=== PATIENT | female | born 1970 | race Hispanic/Latino ===

== ENCOUNTER → 2020-08-19 00:32 | Outpatient (CLI) | payer OTHER, SELFPAY ==
[2020-08-19 17:45] LABS: SARS-CoV-2 RNA PCR Positive
== END ==
PROVIDERS: PCP Nurse Practitioner Family; Visit Provider Internal Medicine Gastroenterology
DX: Z01.812 Encounter for preprocedural laboratory examination (principal); U07.1 COVID-19
CPT/HCPCS: C9803; U0003; U0005

== ENCOUNTER 2020-09-30 01:48 | Day surgery (SDC) | payer OTHER, SELFPAY ==
[2020-08-08 14:48] VITALS: BMI 32.1
--- NOTE | 2020-08-21 10:13 | SUR.PREOP ---
08/21/20 Attempted to contact patient several times yesterday 08/20/20 with no success. Messages left on patient's voicemail with no call returned. Call Dr. Lopes on 08/20/20 at 2pm to discuss patient's positive Covid test. Dr. Lopes ok'd the patient to be cancelled for her procedure on Saturday and instructed the patient to call the office to reschedule in 4 to 6 weeks. 08/21/20 1015 Called patient's emergency contact number after trying to call patient again with no answer spoke with sister Tamela. Message left with Tamela to have Altagracia call me back to discuss her appointment for tomorrow. 08/21/20 1022 patient called back and test result given. Discussed patient's symptoms which were a mild cough 2 weeks ago and fatigue currently. She said the cough is gone and just having fatigue but thought it was due to her schedule at home. Instructed patient to call doctors office if symptoms worsen and to call Dr Lopes's office to schedule her procedure in 4 to 6 weeks. Patient voiced understanding. Instructed patient that she would be receiving a call from the [facility] as we report all Covid positive results. Patient voiced understanding. Questions answered from patient about rescheduling her procedure.
[2020-09-22 14:37] VITALS: BMI 27.5
--- NOTE | ~2020-09-30 | XR_ITS ---
EXAMINATION: XR chest 1V INDICATION: Possible esophageal perforation during upper endoscopy TECHNIQUE: AP view the chest is obtained. COMPARISON: 03/23/2019 FINDINGS: Water-soluble contrast material is seen in the stomach. There is no evidence of contrast ma terial in the mediastinum. The lungs are clear. The cardiomediastinal silhouette is normal. Surgical clips in the right upper quadrant are likely from prior cholecystectomy. There are partially imaged c hanges of cervical fusion procedure. IMPRESSION: 1. No acute cardiopulmonary abnormality or evidence of water-soluble contrast in the mediastinum. Reviewed, dictated and finalized at location A. IMPRESSION: 1. No acute cardiopulmonary abnormality or evidence of water-soluble contrast i n the mediastinum.
--- NOTE | ~2020-09-30 | XR_ITS ---
EXAMINATION: XR esophogram water soluble DATE: 09/30/2020 13:13 INDICATION: Patient with odynophagia post upper endoscopy TECHNIQUE: The patient drank water-soluble contrast. Fluoroscopy of the hypopharynx and esophagus was performed. Fluoroscopy exposure time was 1.5 minutes. The DAP for this procedure was 26.54 Gycm2. COMPARISON: None. FINDINGS: Examination is limited by patient's ability to tolerate oral contrast material. No esophage al perforation is identified. There is no mass or stricture of the esophagus. There is mild delay in emptying of contrast from the distal esophagus into the stomach. Esophageal motility is normal. There is no hiatal hernia. There was no observed gastroesophageal reflux. IMPRESSION: 1. No esophageal perforation identified. 2. Mild delayed emptying of contrast into the stomach. Reviewed, dictated and finalized at location A.
[2020-09-30 10:22] VITALS: BP 142/91; RESP 19; TEMP 36.5; O2SAT 99; BMI 27.5
[2020-09-30] MEDS: LACTATED RINGERS 1,000 ML 150 ML IV CONT (10:39)
--- NOTE | 2020-09-30 11:02 | PM.HPGS ---
History of Present Illness History of Present Illness Consent: Risks, benefits, and alternatives have been discussed and questions answered. Patient agrees to proceed with procedure. Chief complaint: dysphagia Narrative: Altagracia Pham is a 50 year old female with severe dysphagia for solid food. She has a history of having had a hiatal hernia repair. Eventually it had to be taken down because of complications. Review of Systems Review of Systems: All systems reviewed & are unremarkable except as noted in HPI and below PMFSH Past Medical History Medical History (Updated 08/03/20 @ 13:39 by Davey Lopes MD) Hiatal hernia HTN (hypertension) Migraines Surgical History Surgical History H/O: hysterectomy History of endoscopy History of fusion of cervical spine Hx of appendectomy Hx of cholecystectomy Hx of knee surgery Family History Family History Mother Hypertension Family history of diabetes mellitus in first degree relative Sibling Patient's sister is in good health Patient's brother is in good health Father Hypertension Family history of diabetes mellitus in first degree relative Social History Social History Smoking status: Never smoker Second hand tobacco smoke exposure: No Alcohol intake: never Substance use: never Substance use type: does not use Living arrangements: with family Spiritual care concerns: No Meds Home Medications and Allergies Home Medications Medication Instructions Recorded Confirmed Type omeprazole 20 mg capsule,delayed 20 mg PO DAILY #20 cap 07/25/20 08/08/20 Rx release bupropion HCl 300 mg PO QAM 08/08/20 09/22/20 History ethinyl estradiol 0.5 mg PO DAILY 08/08/20 08/08/20 History famotidine 40 mg PO DAILY 08/08/20 08/08/20 History nortriptyline 50 mg PO HS 08/08/20 08/08/20 History progesterone micronized 300 mg PO HS 08/08/20 08/08/20 History ondansetron 4 mg disintegrating 4 mg PO Q6H PRN #14 tablet 09/20/20 09/22/20 Rx tablet Allergies Allergy/AdvReac Type Severity Reaction Status Date / Time metoclopramide AdvReac Unknown hullcinatio Verified 09/22/20 14:26 ns Vital Signs Vital Signs - 24 hr 09/30/20 10:22 Temperature 36.5 C Respiratory Rate 19 Blood Pressure 142/91 H Pulse Oximetry 99 Exam Resp: Auscultation: clear to auscultation bilaterally Cardio: Rate: regular rate Rhythm: regular rhythm GI: GI Palp: Yes Soft to palpation and No Tenderness to palpation present (GI) Assessment and Plan Assessment and plan (1) Dysphagia: Code(s): R13.10 - Dysphagia, unspecified Status: Acute Assessment and Plan: EGD with possible biopsy or dilatation or cautery.
--- NOTE | 2020-09-30 11:10 | WPDANESEPPF ---
Anes - Initial Pre Proc Eval Procedure: Operation Date: 08/22/20 10:30 Proposed Procedures p Esophagogastroduodenoscopy - Davey Lopes MD Operation Date: 09/30/20 11:30 Proposed Procedures p Esophagogastroduodenoscopy - Davey Lopes MD Date/Time: 09/30/20 11:10 Surgeon: Davey Lopes MD Pre Op Diagnosis: dysphagia Patient Data Age: 50 Gender: F Height: 5 ft 1 in Weight: 66 kg Last Vital Signs Temp 36.5 C 09/30/20 10:22 Resp 19 09/30/20 10:22 BP 142/91 H 09/30/20 10:22 Pulse Ox 99 09/30/20 10:22 Allergies Allergy/AdvReac Type Severity Reaction Status Date / Time metoclopramide AdvReac Unknown hullcinatio Verified 09/22/20 14:26 ns Home Medications Medication Instructions Recorded Confirmed Type omeprazole 20 mg capsule,delayed 20 mg PO DAILY #20 cap 07/25/20 08/08/20 Rx release bupropion HCl 300 mg PO QAM 08/08/20 09/22/20 History ethinyl estradiol 0.5 mg PO DAILY 08/08/20 08/08/20 History famotidine 40 mg PO DAILY 08/08/20 08/08/20 History nortriptyline 50 mg PO HS 08/08/20 08/08/20 History progesterone micronized 300 mg PO HS 08/08/20 08/08/20 History ondansetron 4 mg disintegrating 4 mg PO Q6H PRN #14 tablet 09/20/20 09/22/20 Rx tablet Patient hx anesthesia problems: none Family hx anesthesia problems: none PMFSH Past Medical History Medical History Hiatal hernia HTN (hypertension) Migraines Surgical History Surgical History H/O: hysterectomy History of endoscopy History of fusion of cervical spine Hx of appendectomy Hx of cholecystectomy Hx of knee surgery Family History Family History Mother Hypertension Family history of diabetes mellitus in first degree relative Sibling Patient's sister is in good health Patient's brother is in good health Father Hypertension Family history of diabetes mellitus in first degree relative Social History Social History Smoking status: Never smoker Second hand tobacco smoke exposure: No Alcohol intake: never Substance use: never Substance use type: does not use Living arrangements: with family Spiritual care concerns: No Anes - Eval Final PreProcedure Day of Procedure 09/30/20 11:10 Patient weight: overweight Heart: regular rate and rhythm Lungs: clear to auscultation Airway: Mallampati scale class II Neurological: alert and oriented Last oral intake: >/= 8 hours ASA classification: II Emergent: no Anesthetic plan: proceed Anesthesia type and monitoring: general GIVS and standard monitoring Informed Consent: The patient's anesthetic plan and its attendant risks and benefits were discussed with the patient/family/POA. Questions were solicited and answers provided to the satisfaction of the patient/family/POA.
[2020-09-30] MEDS: ONDANSETRON INJ 4 MG/2 ML VIAL IV PUSH (11:13)
[2020-09-30 11:54] VITALS: BP 164/73; PULSE 95; RESP 20; O2SAT 100
[2020-09-30 12:04] VITALS: BP 129/77; PULSE 82; RESP 14; O2SAT 100
[2020-09-30 12:14] VITALS: BP 136/78; PULSE 80; RESP 16; O2SAT 100
--- NOTE | 2020-09-30 12:36 | SUR.PHASEII ---
1230 PT TAKEN TO RADIOLOGY FOR BARIUM SWALLOW.
--- NOTE | 2020-09-30 14:27 | SUR.PHASEII ---
[address] BHANDARI AND READ HIM THE XRAY RESULTS. PT IS OKAY TO GO HOME. HE WOULD LIKE HER INSTRUCTED TO TAKE OTC MAALOX AND GAVISCON DIRECTED NEEDED.
--- NOTE | 2020-09-30 14:31 | SUR.PHASEII ---
1420 PT FEELING BETTER. STATES PAIN HAS DECREASED. DISCHARGE INSTRUCTIONS GIVEN AND EXPLAINED. VERBALIZED UNDERSTANDING. FATHER HERE TO DRIVE HER HOME. TAKEN PER W/C TO POV. AWAKE, ALERT, OX4. NO DISTRESS CALM AND COOPERATIVE. DRINKING WATER PO.
== END 2020-09-30 14:45 | disposition home or self-care (01) ==
PROVIDERS: PCP Nurse Practitioner Family; Visit Provider Internal Medicine Gastroenterology
PROC: 0DJ08ZZ Inspection of Upper Intestinal Tract, Via Natural or Artificial Opening Endoscopic (ICD-10-PCS; CPT 43235; principal; 2020-09-30 11:30)
DX: R13.10 Dysphagia, unspecified (principal); R10.13 Epigastric pain; I10 Essential (primary) hypertension
CPT/HCPCS: 43239; 43450; 71045; 74220; 87081; J2405; J2704; J7120

== ENCOUNTER 2021-02-22 16:47 | Outpatient (CLI) | payer OTHER, SELFPAY ==
--- NOTE | ~2021-02-22 | MM_ITS ---
EXAMINATION: MM screening gabe BI w radames HISTORY: Screening TECHNIQUE: Craniocaudal and mediolateral oblique 3-D tomosynthesis images were obtained and synthetic 2-D images were generated. CAD analysis was submitted and interpreted. COMPARISON: 07/06/2011 BREAST PARENCHYMAL COMPOSITION: The breasts are heterogeneously dense, which may obscure small masses . FINDINGS: There is no evidence of suspicious mass, calcification, or architectural distortion to sugg est malignancy in either breast. There has been no suspicious interval change. IMPRESSION: 1. No mammographic evidence of malignancy. 2. Recommend routine screening mammography in one year. BI-RADS Category 1: Negative Reviewed, dictated and finalized at location A.
== END 2021-02-22 16:48 | disposition home or self-care (01) ==
LOC: ANHIMG 16:48
PROVIDERS: PCP Nurse Practitioner Family; Visit Provider Nurse Practitioner Family
DX: Z12.31 Encounter for screening mammogram for malignant neoplasm of breast (principal)
CPT/HCPCS: 77063; 77067

== ENCOUNTER → 2021-03-22 08:17 | Outpatient (CLI) | payer OTHER, SELFPAY ==
[2021-03-22 17:36] LABS: SARS-CoV-2 RNA PCR Negative
== END ==
PROVIDERS: PCP Nurse Practitioner Family; Visit Provider Nurse Practitioner Family
DX: J06.9 Acute upper respiratory infection, unspecified (principal); Z20.822 Contact with and (suspected) exposure to COVID-19
CPT/HCPCS: C9803; U0003; U0005

== ENCOUNTER → 2021-05-04 01:40 | Outpatient (CLI) | payer OTHER, SELFPAY ==
[2021-05-04 19:33] LABS: SARS-CoV-2 RNA PCR Negative
== END ==
PROVIDERS: PCP Nurse Practitioner Family
DX: R68.89 Other general symptoms and signs (principal); Z20.822 Contact with and (suspected) exposure to COVID-19
CPT/HCPCS: C9803; U0003; U0005

== ENCOUNTER 2021-05-24 16:11 | Outpatient (CLI) | payer OTHER, SELFPAY ==
--- NOTE | ~2021-05-24 | MR_ITS ---
EXAMINATION: MR cervical spine wo con DATE: 05/24/2021 17:19 INDICATION: Cervical radiculopathy. TECHNIQUE: Magnetic resonance imaging (MRI) of the cervical spine was performed without intravenous c ontrast. Sequences included sagittal T2-weighted FSE, sagittal T2-weighted FS FSE, sagittal T1-weight ed FSE, axial MERGE, and axial T2-weighted FSE. COMPARISON: Cervical spine MRI 09/27/2014 FINDINGS: Bone alignment is normal. Vertebral body heights are normal. There is mildly decreased disc height at C4-C5 and C5-C6. There are changes of posterior fusion procedure from C4 to C6 with latera l mass screws. The spinal cord signal intensity is normal. The following disc levels are specifically discussed: C2-C3: The disc does not extend beyond the endplate margin. There is no uncovertebral joint osteoarth ritis. There is mild bilateral facet joint osteoarthritis. There is no neural foraminal stenosis. The re is no central canal stenosis. C3-C4: There is a central protrusion. There is no uncovertebral joint osteoarthritis. There is mild b ilateral facet joint osteoarthritis. There is mild right neural foraminal stenosis. There is mild wilson tral canal stenosis. C4-C5: The disc does not extend beyond the endplate margin. There is mild right uncovertebral joint o steoarthritis. There is no facet joint hypertrophy. There is no neural foraminal stenosis. There is n o central canal stenosis. C5-C6: The disc does not extend beyond the endplate margin. There is mild bilateral uncovertebral surjit nt hypertrophy. There is no facet joint hypertrophy. There is no neural foraminal stenosis. There is no central canal stenosis. C6-C7: The disc is bulging. There is mild bilateral uncovertebral joint osteoarthritis. There is mode rate bilateral facet joint hypertrophy. There is mild bilateral neural foraminal stenosis. There is m ild central canal stenosis. C7-T1: The disc does not extend beyond the endplate margin. There is no uncovertebral joint osteoarth ritis. There is mild bilateral facet joint osteoarthritis. There is mild bilateral neural foraminal s tenosis. There is no central canal stenosis. IMPRESSION: 1. Posterior fusion procedure from C4 to C6. 2. Mild cervical spondylosis, stable from 09/27/2014. Reviewed, dictated and finalized at location B. RONICS TECHNICIAN
== END 2021-05-24 16:12 | disposition home or self-care (01) ==
LOC: ANHIMG 16:15
PROVIDERS: PCP Nurse Practitioner Family; Visit Provider Nurse Practitioner Family
DX: M47.22 Other spondylosis with radiculopathy, cervical region (principal); Z98.1 Arthrodesis status
CPT/HCPCS: 72141

== ENCOUNTER 2021-08-20 16:23 | Emergency (ER) | payer OTHER, SELFPAY ==
[2021-08-20 16:32] VITALS: BP 148/93; PULSE 98; RESP 16; TEMP 36.6; O2SAT 99
--- NOTE | 2021-08-20 16:55 | ED.URI ---
HPI - URI/Sore Throat General Chief Complaint: Upper Respiratory Infection Stated Complaint: uri/vomiing/diarrhea Time Seen by Provider: 08/20/21 16:55 Source: patient and RN notes reviewed Mode of arrival: ambulatory Limitations: no limitations History of Present Illness HPI Narrative: Patient presents today complaining of sore throat, left ear pain, headache, cough x4 days. 2 days ago, she called her PCPs office and described her symptoms. They then called her in a prescription for Augmentin. Since starting the Augmentin, she has developed nausea, vomiting, and diarrhea. She currently rates her pain 6/10 and has been using TheraFlu with some mild relief. MD elicited complaint: cough and sore throat Related Data Home Medications Medication Instructions Recorded Confirmed bupropion HCl 300 mg PO QAM 08/08/20 09/22/20 ethinyl estradiol 0.5 mg PO DAILY 08/08/20 08/08/20 famotidine 40 mg PO DAILY 08/08/20 08/08/20 nortriptyline 50 mg PO HS 08/08/20 08/08/20 amoxicillin-pot clavulanate tablet 08/20/21 Allergies Allergy/AdvReac Type Severity Reaction Status Date / Time metoclopramide AdvReac Unknown hullcinatio Verified 09/22/20 14:26 ns Review of Systems Review of Systems: CONSTITUTIONAL: Denies body aches, fever, chills, or sweats. EYES: Denies visual changes, redness, or discharge. ENT: Denies rhinorrhea, congestion. + Left ear pain, sore throat CARDIOVASCULAR: Denies chest pain, palpitations, or edema. RESPIRATORY: Denies dyspnea.+ Cough GASTROINTESTINAL: Denies abdominal pain. + Nausea, vomiting, diarrhea GENITOURINARY: Denies dysuria or hematuria. SKIN: Denies rash, itching, or wounds. MUSCULOSKELETAL: Denies back pain, joint pain, or myalgia. NEUROLOGIC: Denies numbness, tingling, or weakness.+ Headache PSYCH: Denies depression or anxiety. [facility] Past Medical History Medical History (Updated 08/20/21 @ 17:38 by Rachell Colón, NALLELY, ) Hiatal hernia HTN (hypertension) Migraines Surgical History Surgical History H/O: hysterectomy History of endoscopy History of fusion of cervical spine Hx of appendectomy Hx of cholecystectomy Hx of knee surgery Family History Family History Mother Hypertension Family history of diabetes mellitus in first degree relative Sibling Patient's sister is in good health Patient's brother is in good health Father Hypertension Family history of diabetes mellitus in first degree relative Social History Social History Smoking status: Never smoker Second hand tobacco smoke exposure: No Alcohol intake: never Substance use: never Substance use type: does not use Spiritual care concerns: No Comments At time of signature, I have reviewed and agree with nursing past medical, surgical, social and family history unless otherwise noted. Please see nursing chart for further information. There is no relevant family history pertinent to the presenting complaint Exam Narrative: GENERAL: Well-appearing, well-nourished, and in no acute distress. HEAD: Normocephalic, atraumatic. EYES: EOMI. No redness or drainage. Conjunctivae normal. ENT: Mucous membranes pink and moist. Nares clear. No rhinorrhea. TMs normal bilaterally. Throat slightly erythematous without edema or exudate. Uvula midline. NECK: Normal AROM. Supple. Left anterior cervical chain lymphadenopathy and tenderness. CHEST: No respiratory distress. Clear to auscultation. HEART: Regular rate and rhythm. No murmur appreciated. Normal peripheral pulses. EXTREMITIES: Normal range of motion. No edema. SKIN: Warm, dry, no rash. Capillary refill normal. Normal skin turgor. NEURO: No focal deficits. Alert and oriented x3. Gait steady. PSYCH: Normal affect. No signs of depression or anxiety. Course Course Level
[2021-08-20] MEDS: PROMETHAZINE HCL 25 MG/ML AMPUL IM (17:02)
== END 2021-08-20 17:43 | disposition home or self-care (01) ==
PROVIDERS: Emergency Provider Nurse Practitioner; PCP Nurse Practitioner Family
DX: R11.2 Nausea with vomiting, unspecified (principal); R19.7 Diarrhea, unspecified; J06.9 Acute upper respiratory infection, unspecified; I10 Essential (primary) hypertension
CPT/HCPCS: 87081; 87880; 96372; 99213; G0463; J2550

== ENCOUNTER 2022-06-01 13:49 | Emergency (ER) | payer OTHER, SELFPAY ==
[2022-06-01 14:03] VITALS: BP 135/89; PULSE 90; RESP 16; TEMP 37; O2SAT 99
--- NOTE | 2022-06-01 14:43 | ED.URI ---
HPI - URI/Sore Throat General Chief Complaint: Upper Respiratory Infection Stated Complaint: uri Time Seen by Provider: 06/01/22 14:40 Source: patient, RN notes reviewed and old records reviewed Mode of arrival: ambulatory Limitations: no limitations History of Present Illness HPI Narrative: 52 year old female who presents to [facility] care with complaints of dry cough, fever, sore throat, runny nose and generalized malaise since yesterday. Patient reports that she was sent home from work today. Patient reports influenza before . Patient reports some chest tightness with cough, denies any shortness of breath.. Patient has taken some Ibuprofen and some sinus medications for her symptoms. MD elicited complaint: cough, sore throat, rhinorrhea and nasal congestion Onset (ago): day(s) (day 2 of symptoms) Pain scale (0-10): 4 Treatments prior to arrival: ibuprofen and other (sinus medication ) Related Data Home Medications Medication Instructions Recorded Confirmed bupropion HCl 300 mg 24 hr tablet, 300 mg PO QAM 08/08/20 06/01/22 extended release ethinyl estradiol 0.5 mg tablet 0.5 mg PO DAILY 08/08/20 06/01/22 famotidine 40 mg tablet 40 mg PO DAILY 08/08/20 06/01/22 nortriptyline 50 mg capsule 50 mg PO HS 08/08/20 06/01/22 diclofenac sodium 75 mg 75 mg PO BID 06/01/22 06/01/22 tablet,delayed release rimegepant 75 mg disintegrating 75 mg PO DIRECTED 06/01/22 06/01/22 [facility] Allergies Allergy/AdvReac Type Severity Reaction Status Date / Time metoclopramide AdvReac Unknown valeriellcinatio Verified 06/01/22 13:54 ns Review of Systems Review of Systems: CONSTITUTIONAL:Reports malaise, chills, sweats, or fever. EYES: Denies visual changes, redness, or discharge. ENT: Reports rhinorrhea, congestion, sinus pain, otalgia and sore throat. CARDIOVASCULAR: Denies chest pain, palpitations, or edema. RESPIRATORY: Reports cough.? Denies dyspnea, some chest tightness with cough GASTROINTESTINAL: Denies abdominal pain, nausea, vomiting, diarrhea SKIN: Denies rash or itching. MUSCULOSKELETAL: Denies myalgia. NEUROLOGIC: Denies headache. All systems reviewed & are unremarkable except as noted in HPI and below PMFSH Past Medical History Medical History Hiatal hernia HTN (hypertension) Migraines Surgical History Surgical History H/O: hysterectomy History of endoscopy History of fusion of cervical spine Hx of appendectomy Hx of cholecystectomy Hx of knee surgery Family History Family History Mother Hypertension Family history of diabetes mellitus in first degree relative Sibling Patient's sister is in good health Patient's brother is in good health Father Hypertension Family history of diabetes mellitus in first degree relative Social History Social History Smoking status: Never smoker Second hand tobacco smoke exposure: No Alcohol intake: never Substance use: never Substance use type: does not use Spiritual care concerns: No Comments At time of signature, agree with nursing past medical, surgical, social and family history. There is no relevant family history pertinent to the presenting complaint Exam Narrative: GENERAL: Well-appearing, well-nourished, and in no acute distress. HEAD: Normocephalic EYES: PERRLA, conjunctivae clear ENT: Nares clear, turbinates edematous and erythematous, clear discharge. Mucous membranes moist. TM pearly cid with dull light reflex bilaterally; no tragal tenderness. Oropharynx erythematous without lesions. Tonsils not enlarged and without exudate, no drooling, no hoarseness, no trismus, uvula midline.post nasal drainage noted NECK: Supple. No lymphadenopathy CHEST: Clear to auscultation, breath s
== END 2022-06-01 14:57 | disposition home or self-care (01) ==
PROVIDERS: Emergency Provider Registered Nurse; PCP Nurse Practitioner Family
DX: J06.9 Acute upper respiratory infection, unspecified (principal); J02.9 Acute pharyngitis, unspecified; Z20.822 Contact with and (suspected) exposure to COVID-19; I10 Essential (primary) hypertension
CPT/HCPCS: 87081; 87426; 87804; 87880; 99213; C9803; G0463

== ENCOUNTER 2022-07-12 10:30 | Emergency (ER) | payer OTHER, SELFPAY ==
[2022-07-12 10:53] VITALS: BP 122/83; PULSE 111; RESP 16; TEMP 37.5; O2SAT 98
--- NOTE | 2022-07-12 11:33 | ED.URI ---
HPI - URI/Sore Throat General Chief Complaint: Upper Respiratory Infection Stated Complaint: uri Time Seen by Provider: 07/12/22 11:33 Source: patient Mode of arrival: ambulatory Limitations: no limitations History of Present Illness HPI Narrative: 52-year-old female presents with complaint of nasal congestion, sore throat, cough, fatigue, body aches, chills, fever starting yesterday. No nausea vomiting diarrhea. Denies chest pain and shortness of breath. is taking Tylenol to treat symptoms. All systems reviewed and negative except as noted above. Related Data Home Medications Medication Instructions Recorded Confirmed bupropion HCl 300 mg 24 hr tablet, 300 mg PO QAM 08/08/20 07/12/22 extended release ethinyl estradiol 0.5 mg tablet 0.5 mg PO DAILY 08/08/20 07/12/22 famotidine 40 mg tablet 40 mg PO DAILY 08/08/20 07/12/22 nortriptyline 50 mg capsule 50 mg PO HS 08/08/20 07/12/22 diclofenac sodium 75 mg 75 mg PO BID 06/01/22 07/12/22 tablet,delayed release rimegepant 75 mg disintegrating 75 mg PO DIRECTED 06/01/22 07[facility]12[facility]22 [facility] alprazolam 1 mg tablet 1 mg PO BID 07/12/22 07/12/22 lisinopril 20 mg tablet 20 mg PO DAILY 07/12/22 07/12/22 sertraline 25 mg tablet 25 mg PO DAILY 07/12/22 07/12/22 Allergies Allergy/AdvReac Type Severity Reaction Status Date / Time metoclopramide AdvReac Unknown hullcinatio Verified 07/12/22 11:03 ns Review of Systems Review of Systems: CONSTITUTIONAL: reports fever, chills, or sweats. EYES: Denies visual changes, redness, or discharge. ENT: reports rhinorrhea, congestion, sore throat. Denies otalgia. CARDIOVASCULAR: Denies chest pain, palpitations, or edema. RESPIRATORY: Reports cough. Denies dyspnea. GASTROINTESTINAL: Denies abdominal pain, nausea, vomiting, or diarrhea. GENITOURINARY: Denies dysuria or hematuria. SKIN: Denies rash or itching. MUSCULOSKELETAL: Denies back pain, joint pain, or myalgia. NEUROLOGIC: Denies headache, numbness, or weakness. PSYCHIATRIC: Denies anxiety or depression. All other systems reviewed are negative, except as documented in HPI. [facility] Past Medical History Medical History (Updated 07/12/22 @ 11:39 by Carloyn Lantigua NP) Hiatal hernia HTN (hypertension) Migraines Surgical History Surgical History H/O: hysterectomy History of endoscopy History of fusion of cervical spine Hx of appendectomy Hx of cholecystectomy Hx of knee surgery Family History Family History Mother Hypertension Family history of diabetes mellitus in first degree relative Sibling Patient's sister is in good health Patient's brother is in good health Father Hypertension Family history of diabetes mellitus in first degree relative Social History Social History Smoking status: Never smoker Second hand tobacco smoke exposure: No Alcohol intake: never Substance use: never Substance use type: does not use Living arrangements: with family Spiritual care concerns: No Comments At time of signature, agree with nursing past medical, surgical, social and family history. There is no relevant family history pertinent to the presenting complaint. Exam Narrative: GENERAL: This is a well-nourished, well-developed patient, patient ill-appearing but no distress. HEAD: normocephalic, atraumatic. EYES: PERRL. Sclera clear/white. Vision is grossly intact. EARS: External ears normal, auditory canals clear and without drainage, TMs normal without perforation. Hearing grossly intact. NOSE: External nose normal with Clear nasal drainage, erythema to both nares. THROAT: Mucous membranes moist, Mild erythema posterior pharynx. NECK: Neck supple, non-tender without lymphadenopathy, masses or thyromegaly. CARDIOVASCULAR: Regular rate and rhythm without murm
== END 2022-07-12 11:43 | disposition home or self-care (01) ==
PROVIDERS: Emergency Provider Nurse Practitioner Family
DX: U07.1 COVID-19 (principal); I10 Essential (primary) hypertension
CPT/HCPCS: 87081; 87426; 87804; 87880; 99213; C9803; G0463

== ENCOUNTER 2022-07-17 09:09 | Emergency (ER) | payer OTHER, SELFPAY ==
[2022-07-17 09:11] VITALS: BP 121/84; PULSE 93; RESP 16; TEMP 36.4; O2SAT 100
--- NOTE | 2022-07-17 09:38 | ED.URI ---
HPI - URI/Sore Throat General Chief Complaint: Upper Respiratory Infection Stated Complaint: diarrhea/sore throat Time Seen by Provider: 07/17/22 09:38 Source: patient Mode of arrival: ambulatory Limitations: no limitations History of Present Illness HPI Narrative: 52-year-old female presents with complaint of sore throat that started at 3:00 a.m.. Patient was diagnosed with COVID on July 12. Reports that she had diarrhea, URI symptoms, loss of smell and taste. URI symptoms and diarrhea have resolved. States she has also lost her voice. Afebrile. Now concerned she may have strep throat. All systems reviewed and negative except as noted above. Related Data Home Medications Medication Instructions Recorded Confirmed bupropion HCl 300 mg 24 hr tablet, 300 mg PO QAM 08/08/20 07/17/22 extended release ethinyl estradiol 0.5 mg tablet 0.5 mg PO DAILY 08/08/20 07/17/22 famotidine 40 mg tablet 40 mg PO DAILY 08/08/20 07/17/22 nortriptyline 50 mg capsule 50 mg PO HS 08/08/20 07/17/22 diclofenac sodium 75 mg 75 mg PO BID 06/01/22 07/17/22 tablet,delayed release rimegepant 75 mg disintegrating 75 mg PO DIRECTED 06/01/22 07/17/22 tablet ([facility] ODT) alprazolam 1 mg tablet 1 mg PO BID 07/12/22 07/17/22 lisinopril 20 mg tablet 20 mg PO DAILY 07/12/22 07/17/22 sertraline 25 mg tablet 25 mg PO DAILY 07/12/22 07/17/22 Allergies Allergy/AdvReac Type Severity Reaction Status Date / Time metoclopramide AdvReac Unknown hullcinatio Verified 07/12/22 11:03 ns Review of Systems Review of Systems: CONSTITUTIONAL: Denies fever, chills, or sweats. Reports fatigue. EYES: Denies visual changes, redness, or discharge. ENT: Denies rhinorrhea, congestion . Reports sore throat, hoarse voice. CARDIOVASCULAR: Denies chest pain, palpitations, or edema. RESPIRATORY: Denies cough or dyspnea. GASTROINTESTINAL: Denies abdominal pain, nausea, vomiting, or diarrhea. GENITOURINARY: Denies dysuria or hematuria. SKIN: Denies rash or itching. MUSCULOSKELETAL: Denies back pain, joint pain, or myalgia. NEUROLOGIC: Denies headache, numbness, or weakness. PSYCHIATRIC: Denies anxiety or depression. All other systems reviewed are negative, except as documented in HPI. [facility] Past Medical History Medical History (Updated 07/17/22 @ 09:51 by Carolyn Lantigua NP) Hiatal hernia HTN (hypertension) Migraines Surgical History Surgical History H/O: hysterectomy History of endoscopy History of fusion of cervical spine Hx of appendectomy Hx of cholecystectomy Hx of knee surgery Family History Family History Mother Hypertension Family history of diabetes mellitus in first degree relative Sibling Patient's sister is in good health Patient's brother is in good health Father Hypertension Family history of diabetes mellitus in first degree relative Social History Social History Smoking status: Never smoker Second hand tobacco smoke exposure: No Alcohol intake: never Substance use: never Substance use type: does not use Living arrangements: with family Spiritual care concerns: No Comments At time of signature, agree with nursing past medical, surgical, social and family history. There is no relevant family history pertinent to the presenting complaint. Exam Narrative: GENERAL: This is a well-nourished, well-developed patient, in no apparent distress. HEAD: normocephalic, atraumatic. EYES: PERRL. Sclera clear/white. Vision is grossly intact. EARS: External ears normal, auditory canals clear and without drainage, TMs normal without perforation. Hearing grossly intact. NOSE: External nose normal with no obvious nasal discharge, nares without redness, no rhinorrhea. THROAT: Mucous membranes moist, mild erythema posterior pharynx NECK: Neck s
== END 2022-07-17 10:06 | disposition home or self-care (01) ==
PROVIDERS: Emergency Provider Nurse Practitioner Family; PCP Nurse Practitioner Family
DX: J02.9 Acute pharyngitis, unspecified (principal); I10 Essential (primary) hypertension
CPT/HCPCS: 87081; 87880; 99213; G0463

== ENCOUNTER 2022-11-08 13:45 | Emergency (ER) | payer OTHER, SELFPAY ==
--- NOTE | ~2022-11-08 | XR_ITS ---
EXAMINATION: XR chest 2V Exam Date/Time: 11/08/2022 14:25 CDT HISTORY: COUGH Comparison: 09/30/2020. RESULT: Lines, tubes, and devices: Partially visualized cervical fusion hardware. Cholecystectomy clips. Lungs and pleura: Clear. Cardiomediastinal silhouette: Stable. Calcified hilar granuloma. Other: No acute osseous or upper abdominal finding. IMPRESSION: No acute cardiopulmonary process. Reviewed, dictated and finalized at location K.
--- NOTE | 2022-11-08 13:48 | ED.URI ---
HPI - URI/Sore Throat General Chief Complaint: Upper Respiratory Infection Stated Complaint: Sinus/SOB Time Seen by Provider: 11/08/22 13:47 Source: patient Mode of arrival: ambulatory Limitations: no limitations History of Present Illness HPI Narrative: Patient is a 52-year-old female who presents with sinus congestion and cough that is keeping her up at night causing shortness of breath for 10 days. Patient received prednisone 10/29 and then Tessalon Perles and Zofran 10/30. Patient received azithromycin 11/02. Patient states she felt like symptoms were improving but now feels like they did in the beginning. Patient concern for pneumonia. Patient states Tessalon Perles help her with her coughing and has a refill to [employer] today. Patient is also been using inhaler with mild relief. Patient has intermittently been using Flonase but no other allergy medicine. Does report using Sudafed off and on throughout the 10 days as well. Denies any fever, chills, nausea, vomiting, diarrhea. Related Data Home Medications Medication Instructions Recorded Confirmed bupropion HCl 300 mg 24 hr tablet, 300 mg PO QAM PRN Anxiety 08/08/20 11/08/22 extended release rimegepant 75 mg disintegrating 75 mg PO DIRECTED PRN Migraine 06/01/22 11/08/22 tablet (Nurtec ODT) Headache alprazolam 1 mg tablet 1 mg PO BID PRN Anxiety 07/12/22 11/08/22 Allergies Allergy/AdvReac Type Severity Reaction Status Date / Time metoclopramide AdvReac Severe Hallucinati Verified 11/08/22 13:47 ng Review of Systems Review of Systems: All systems reviewed & are unremarkable except as noted in HPI and below Constitutional: Constitutional: Denies body ache(s), Denies chills, Denies fatigue, Denies fever(s), Denies headache(s), Denies malaise and Denies weakness Eyes: Eyes: Denies blurry vision, Denies itchy eyes and Denies loss of vision ENT: Denies otalgia, Denies headache(s), Reports nasal congestion, Denies sinus pain, Reports sinus pressure and Denies sore throat Cardiovascular: Cardiovascular: Denies chest pain, Denies irregular heart rhythm and Denies dyspnea Respiratory: Respiratory: Reports cough and Denies dyspnea Gastrointestinal: Gastrointestinal: Denies abdominal pain, Denies diarrhea, Denies nausea and Denies vomiting Musculoskeletal: Musculoskeletal: Denies back pain, Denies myalgias and Denies arthralgias Integumentary/Breasts: Skin/Breast: Denies pruritus and Denies rash Neurologic: Denies headache(s), Denies loss of vision and Denies weakness Psychiatric: Psychiatric: Reports no additional psychiatric complaints Endocrine: Endocrine: Denies fatigue Allergic/Immunologic: Allergic/Immunologic: Denies itchy eyes PMFSH Past Medical History Medical History (Updated 11/08/22 @ 14:38 by Sara Wall APRN) Hiatal hernia HTN (hypertension) Migraines Surgical History Surgical History H/O: hysterectomy History of endoscopy History of fusion of cervical spine Hx of appendectomy Hx of cholecystectomy Hx of knee surgery Family History Family History Mother Hypertension Family history of diabetes mellitus in first degree relative Sibling Patient's sister is in good health Patient's brother is in good health Father Hypertension Family history of diabetes mellitus in first degree relative Social History Social History Smoking status: Never smoker Second hand tobacco smoke exposure: No Alcohol intake: never Substance use: never Substance use type: does not use Living arrangements: with family Spiritual care concerns: No Comments At time of signature, agree with nursing past medical, surgical, social and family history. There is no relevant family history pertinent to the presenting complaint. Exam Const: General: cooperative, health
[2022-11-08 13:50] VITALS: BP 119/83; PULSE 96; RESP 18; TEMP 36.7; O2SAT 100
== END 2022-11-08 14:39 | disposition home or self-care (01) ==
PROVIDERS: Emergency Provider Nurse Practitioner Family; PCP Nurse Practitioner Family
DX: J02.9 Acute pharyngitis, unspecified (principal); I10 Essential (primary) hypertension
CPT/HCPCS: 71046; 99213; G0463

== ENCOUNTER 2023-01-18 01:52 | Day surgery (SDC) | payer OTHER, SELFPAY ==
--- NOTE | 2023-01-17 10:06 | PC.NURSE ---
Pt called regarding EGD procedure scheduled on 01/18/2023, pt was recently hospitalized due to symptoms of dizziness, headaches and syncopal episodes. During the hospitalization she had a loop recorder implanted. She has a follow up cardiology appt. scheduled for 01/31/2023. It was discussed with pt. per Taylor Faye RN for her safety with anesthesia and the procedure we need her to see Blow Up Operator on the and be cleared for procedure to proceed. She was rescheduled to 02/01/2023. Today we spoke with patient and completed pre-op interview and pt denies knowing she was rescheduled and is adamant that Dr. Gregorio had talked with Dr. Lopes regarding the procedure. After Fransico CARROLL discussed this with Dr. Lopes he is in agreement that we need to wait to proceed until after she is seen by the rn admissions 01/31/2023. I have left a message with the cardiology office and will discuss with them when they return the call and relay to patient.
--- NOTE | 2023-01-17 16:24 | PC.NURSE ---
Spoke with Dr. Gregorio's nurse . She had received clearance from Dr. Gregorio to proceed with EGD, pts loop recorder has not shown any arrhythmias and will be removed per pt. request 01/30/2023. Her cardiac workup in the hospital last week was all negative. They will fax clearance. I called pt and confirmed with her we can do her procedure tomorrow and she will be here at 1100, npo after midnight.
[2023-01-18 11:25] VITALS: BP 114/77; PULSE 72; RESP 18; TEMP 36.4; O2SAT 100
--- NOTE | 2023-01-18 12:05 | PM.HPGS ---
History of Present Illness History of Present Illness Consent: Risks, benefits, and alternatives have been discussed and questions answered. Patient agrees to proceed with procedure. Chief complaint: GERD Narrative: Altagracia Pham is a 53 year old female Was referred because of dysphagia for solid food. She has a history of having esophageal stricture and on a few occasions has required esophageal dilatation, but not for the last few years. In 2014 she underwent fundoplication for a small hiatal hernia. That procedure did not go well because she had extreme difficulty with swallowing afterwards and ventrally the fundoplication was reversed. Her weight is stable. She recently had an episode of fainting 6 times in 1 day. She was hospitalized but no abnormalities were seen in her cardiac rhythm. She now is in the process of wearing a loop recorder to see if anything can be determined. Review of Systems Review of Systems: All systems reviewed & are unremarkable except as noted in HPI and below PMFSH Past Medical History Medical History Anxiety GERD (gastroesophageal reflux disease) Hiatal hernia HTN (hypertension) Irritable bowel syndrome Migraines TIA (transient ischemic attack) Surgical History Surgical History H/O: hysterectomy History of endoscopy History of fusion of cervical spine Hx of appendectomy Hx of cholecystectomy Hx of knee surgery Family History Family History Mother Hypertension Family history of diabetes mellitus in first degree relative Sibling Patient's sister is in good health Patient's brother is in good health Father Hypertension Family history of diabetes mellitus in first degree relative Social History Social History Smoking status: Never smoker Second hand tobacco smoke exposure: No Alcohol intake: never Substance use: never Substance use type: does not use Lack of Transportation: No Lack of Food: Sometimes True Current Housing: I Have Housing Concerned About Future Housing: No Difficulty Paying Gas/Electric Bills: No Difficulty Paying for Meds: No Currently Unemployed: No Education: High School Diploma/GED Difficulty w/ Childcare or Family Care: No Living arrangements: with family Occupation/Education: occupation Gender identity (if verbalized by the patient): Female Sexual Orientation (if Verbalized by the Patient): Straight or Heterosexual Spiritual care concerns: No Agree to blood products: Yes Meds Home Medications and Allergies Home Medications Medication Instructions Recorded Confirmed Type bupropion HCl 300 mg 24 hr tablet, 300 mg PO QAM Anxiety 08/08/20 01/17/23 History extended release ondansetron 8 mg disintegrating 8 mg PO Q4-6H PRN nausea and 08/20/21 01/17/23 Rx tablet vomiting 0 days #20 tabs rimegepant 75 mg disintegrating 75 mg PO DIRECTED PRN Migraine 06/01/22 01/17/23 History tablet (Nurtec ODT) Headache alprazolam 1 mg tablet 1 mg PO BID PRN Anxiety 07/12/22 01/17/23 History lisinopril 20 mg tablet 20 mg PO DAILY 01/17/23 01/17/23 History Allergies Allergy/AdvReac Type Severity Reaction Status Date / Time metoclopramide AdvReac Severe Hallucinati Verified 01/18/23 11:25 ng Vital Signs Vital Signs - 24 hr 01/18/23 11:25 Temperature 36.4 C L Pulse Rate 72 Respiratory Rate 18 Blood Pressure 114/77 Pulse Oximetry 100 Oxygen Delivery Room Air Exam Const: General: alert Orientation/consciousness: patient oriented x3 Resp: Auscultation: clear to auscultation bilaterally Cardio: Rhythm: regular rhythm GI: GI Palp: Yes Soft to palpation and No Tenderness to palpation present (GI) Neuro: General: patient oriented x3 Assessment and Plan Assessment and remi
[2023-01-18] MEDS: LACTATED RINGERS 1,000 ML 150 ML IV CONT (12:12)
[2023-01-18 12:28] VITALS: BP 105/56; PULSE 92; RESP 20; O2SAT 100
[2023-01-18 12:38] VITALS: BP 105/77; PULSE 91; RESP 17; O2SAT 100
== END 2023-01-18 13:01 | disposition home or self-care (01) ==
PROVIDERS: PCP Family Medicine; Visit Provider Internal Medicine Gastroenterology
PROC: 0DJ08ZZ Inspection of Upper Intestinal Tract, Via Natural or Artificial Opening Endoscopic (ICD-10-PCS; CPT 43235; principal; 2023-01-18 12:30)
DX: K22.2 Esophageal obstruction (principal); K31.84 Gastroparesis; K21.9 Gastro-esophageal reflux disease without esophagitis; F41.9 Anxiety disorder, unspecified; I10 Essential (primary) hypertension; Z86.73 Personal history of transient ischemic attack (TIA), and cerebral infarction without residual deficits; Z98.1 Arthrodesis status
CPT/HCPCS: 43249; C1726; J2704; J7120

== ENCOUNTER 2023-02-13 07:47 | Outpatient (CLI) | payer MEDICAID, SELFPAY ==
--- NOTE | ~2023-02-13 | NM_ITS ---
EXAM: NM gastric emptying study DATE: 02/13/2023 13:41 INDICATION: Foreign body at the alimentary tract. TECHNIQUE: A gastric emptying study was performed using the methodology of Cinthya MONTGOMERY, et al. J Nucl Med 2007; 48:568-572. The patient was given a meal consisting of 2 scrambled eggs labeled with 1 mCi Tc-99m sulfur colloid, 2 slices of toast, two packages of jam, and approximately 120 mL of water. Si multaneous anterior and posterior 1-min images of the abdomen were obtained with the patient supine a t multiple time points over a total period of 4 hours. The geometric mean of anterior and posterior v iews was determined, and the percentage retention was calculated for each time point. COMPARISON: None. FINDINGS: Gastric retention of the radiotracer-labeled meal was 89%, 82%, and 56% at the 1-hour, 2-hour, and 4- hour time points, respectively. With this technique, apparent rapid gastric emptying is suggested by <30% gastric retention at 1 hour. Delayed gastric emptying is defined by gastric retention of >90% at 1 hour, >60% retention at 2 hours, or >10% retention at 4 hours. IMPRESSION: 1. Delayed gastric emptying. Reviewed, dictated and finalized at location A.
== END 2023-02-13 07:48 | disposition home or self-care (01) ==
LOC: ANHIMG 07:51
PROVIDERS: PCP Family Medicine; Visit Provider Internal Medicine Gastroenterology
DX: T18.9XXA Foreign body of alimentary tract, part unspecified, initial encounter (principal); K30 Functional dyspepsia
CPT/HCPCS: 78264; A9541

== ENCOUNTER 2023-02-28 11:43 | Emergency (ER) | payer OTHER, SELFPAY ==
[2023-02-28 11:53] VITALS: BP 126/74; PULSE 87; RESP 16; TEMP 36.4; O2SAT 100
--- NOTE | 2023-02-28 12:01 | ED.URI ---
HPI - URI/Sore Throat General Chief Complaint: Upper Respiratory Infection Stated Complaint: Cough History of Present Illness HPI Narrative: Pt is a 53 y/o female, PMhx of GERD, hiatal hernia and IBS, presents to with 2 day hx of sore throat, sinus congestion, ear popping with swallowing and a dry harsh cough. She denies associated fevers, chills, CP, SOB, orthopnea, calf pain or swelling, NVDC or urinary symptoms. She has treated her congestion with OTC cold medication. She denies additional associated symptoms or modifying factors. Related Data Home Medications Medication Instructions Recorded Confirmed bupropion HCl 300 mg 24 hr tablet, 300 mg PO QAM Anxiety 08/08/20 02/28/23 extended release alprazolam 1 mg tablet 1 mg PO BID PRN Anxiety 07/12/22 02/28/23 lisinopril 20 mg tablet 20 mg PO DAILY 01/17/23 02/28/23 cholecalciferol (vitamin D3) 1,250 1,250 mcg PO DAILY 02/28/23 02/28/23 mcg (50,000 unit) capsule estradiol 0.5 mg tablet 0.5 mg PO DAILY 02/28/23 02/28/23 famotidine 40 mg tablet 40 mg PO DAILY 02/28/23 02/28/23 hydroxyzine HCl 25 mg tablet 25 mg PO DAILY 02/28/23 02/28/23 metoprolol succinate 25 mg 25 mg PO DAILY 02/28/23 02/28/23 tablet,extended release 24 hr sertraline 50 mg tablet 50 mg PO DAILY 02/28/23 02/28/23 Allergies Allergy/AdvReac Type Severity Reaction Status Date / Time metoclopramide AdvReac Severe Hallucinati Verified 02/28/23 11:46 ng Review of Systems Constitutional: Constitutional: Reports as per HPI ENT: Reports as per HPI Respiratory: Respiratory: Reports as per HPI REPLACED BY [facility] Past Medical History Medical History Anxiety GERD (gastroesophageal reflux disease) Hiatal hernia HTN (hypertension) Irritable bowel syndrome Migraines TIA (transient ischemic attack) Surgical History Surgical History H/O: hysterectomy History of endoscopy History of fusion of cervical spine Hx of appendectomy Hx of cholecystectomy Hx of knee surgery Family History Family History Mother Hypertension Family history of diabetes mellitus in first degree relative Sibling Patient's sister is in good health Patient's brother is in good health Father Hypertension Family history of diabetes mellitus in first degree relative Social History Social History Smoking status: Never smoker Second hand tobacco smoke exposure: No Alcohol intake: never Substance use: never Substance use type: does not use Lack of Transportation: No Lack of Food: Sometimes True Current Housing: I Have Housing Concerned About Future Housing: No Difficulty Paying Gas/Electric Bills: No Difficulty Paying for Meds: No Currently Unemployed: No Education: High School Diploma/GED Difficulty w/ Childcare or Family Care: No Living arrangements: with family Occupation/Education: occupation Gender identity (if verbalized by the patient): Female Sexual Orientation (if Verbalized by the Patient): Straight or Heterosexual Spiritual care concerns: No Agree to blood products: Yes Exam Const: General: healthy appearing, no acute distress and alert Nutritional Appearance: well nourished Orientation/consciousness: patient oriented x3 Limitations: no limitations HENMT: Head: normal to inspection Ears: external ears normal, EAC's normal and TM abnormal (serous pattern bilaterally, right TM is retracted, left TM is bulging) Face and sinus: normal facial exam and sinuses nontender Mouth: Yes Normal oral and palatal mucosa present and Yes lip normal Teeth and gingiva: dentition normal Throat: posterior oropharynx normal and uvula midline Other: no TM erythema or purulence noted bilaterally, nasal mucosa is swollen and injected, no drainage noted. Eyes:
== END 2023-02-28 12:20 | disposition home or self-care (01) ==
PROVIDERS: Emergency Provider Nurse Practitioner Family; PCP Nurse Practitioner Family
DX: H65.03 Acute serous otitis media, bilateral (principal); J06.9 Acute upper respiratory infection, unspecified; Z79.899 Other long term (current) drug therapy; I10 Essential (primary) hypertension; Z86.73 Personal history of transient ischemic attack (TIA), and cerebral infarction without residual deficits
CPT/HCPCS: 87081; 87880; 99213; G0463

== ENCOUNTER 2023-05-30 09:34 | Emergency (ER) | payer OTHER, SELFPAY ==
--- NOTE | ~2023-05-30 | XR_ITS ---
XR chest 2V DATE: 05/30/2023 10:11 INDICATION: Central chest pain TECHNIQUE: PA and lateral views COMPARISON: 11/08/2022 PA and lateral chest FINDINGS: Normal heart size. No hilar or mediastinal enlargement. No pulmonary infiltrate or consolid ation, pleural effusion or pulmonary vascular congestion or pneumothorax is detected. Surgical clips, right upper quadrant, consistent with cholecystectomy. Status post posterior surgical spinal surgical fusion. IMPRESSION: No active cardiopulmonary disease or significant change since 11/08/2022 Reviewed, dictated and finalized at location L. OTIC AIDE IMPRESSION: No active cardiopulmonary disease or significant change since 2022
--- NOTE | ~2023-05-30 | CT_ITS ---
EXAMINATION: CT abdomen pelvis w con DATE: 05/30/2023 12:58 INDICATION: Epigastric pain TECHNIQUE: Computed tomography (CT) of the abdomen and pelvis was performed with 100 mL Omnipaque-350 intravenous contrast. Automated exposure control and iterative reconstruction technique were employe d. The dose-length product was 254.81 mGy-cm. COMPARISON: 03/23/2019 FINDINGS: Lung bases are clear. Heart size is normal. No pericardial or pleural effusion. Small sliding-type hi atal hernia. Small amount of pneumobilia within the left hepatic duct likely related to prior cholecy stectomy and sphincterotomy with cholecystectomy clips at the gallbladder fossa. Liver, spleen, pancr eas, bilateral adrenal glands and kidneys are normal. Air-fluid level within a 3.3 x 2.2 cm duodenal diverticulum arising from the junction of the second and third portion of the duodenum. Bowels are ot herwise unremarkable. The appendix is not visualized. No pericecal inflammatory change to suggest acu te appendicitis. Bladder is normal. The uterus is not identified and has likely been surgically resec abram. No free intraperitoneal gas or fluid. No pathologically enlarged abdominal or pelvic lymphadenop athy. Severe facet osteoarthritis bilaterally at L5-S1. Otherwise mild scattered degenerative skeleta l changes in the spine and pelvis. IMPRESSION: 1. No acute intra-abdominal/pelvic process. 2. Small sliding-type hiatal hernia. Reviewed, dictated and finalized at location A. L STAKER
--- NOTE | 2023-05-30 09:36 | ECG_ITS ---
Measurements Intervals [place] Rate: 86 P: 41 DC: 114 QRS: 43 QRSD: 84 T: 56 QT: 354 QTc: 426 Interpretive Statements SINUS RHYTHM WITH SHORT DC INTERVAL BORDERLINE ECG COMPARED TO ECG 03/23/2019 10:15:37 SINUS RHYTHM NOW PRESENT Electronically Signed On 05-30-2023 9:48:22 HELP DESK COORDINATOR by Danny Dalal D.O.
[2023-05-30] MEDS: ASPIRIN 81 MG CHEWABLE TABLET 324 MG PO (09:44)
[2023-05-30 09:45] VITALS: BP 121/86; PULSE 82; RESP 18; TEMP 36.9; O2SAT 100
[2023-05-30 09:58] LABS: Basophils Percent Auto 0.4 % (0.2-1.2); Eosinophils Absolute Auto 0.1 K/mm3 (0-0.3); Hematocrit 44.8 % (37.0-47.0); Hemoglobin 14.5 g/dL (12.0-15.0); Immature Granulocyte Absolute 0.01 K/mm3 (0.00-0.031); Immature Granulocyte Percent A 0.2 % (0-0.5); Lymphocytes Absolute Auto 1.33 K/mm3 (0.9-3.2); Lymphocytes Percent Auto 26.7 % (18.3-44.2); Mean Corpuscular HGB Conc 32.4 g/dl (32-36); Mean Corpuscular Hemoglobin 28.3 pg (26-34); Mean Corpuscular Volume 87.5 fl (80-100); Mean Platelet Volume 9.2 fl (7.4-10.4); Monocytes Absolute Auto 0.3 K/mm3 (0.1-0.6); Monocytes Percent Auto 5.6 % (2.6-8.5); Neutrophils Absolute Auto 3.3 K/mm3 (1.3-6.7); Neutrophils Percent Auto 66.1 % (45.5-73.1); Platelet Count Result 254 k/mm3 (150-375); Red Blood Count 5.12 M/mm3 (4.2-5.4); Red Cell Distribution Width 12.5 % (11.5-14.5)
[2023-05-30 10:13] LABS: INR 0.9; Prothrombin Time 12.4 Seconds (11.1-14.7)
[2023-05-30 10:14] LABS: Partial Thromboplastin Time 22.6 SECONDS (22.3-36.8)
[2023-05-30 10:24] LABS: Alanine Aminotransferase 17 U/L (6-35); Albumin Level 4.4 g/dL (3.5-5.1); Alkaline Phosphatase 108 U/L (38-126); Anion Gap 11 mmol/L (8-16); Aspartate Amino Transferase 25 U/L (14-36); Bilirubin,Total 0.5 mg/dL (0.2-1.3); Blood Urea Nitrogen 8 mg/dL (7-17); Calcium 9.4 mg/dL (8.4-10.2); Carbon Dioxide 26 mmol/L (22-30); Chloride 106 mmol/L (98-107); Estimated Glomerular Filt Rate > 60; Glucose 97 mg/dL (65-110); Lipase 160 U/L (23-300); Potassium 3.6 mmol/L (3.4-5.0); Sodium 143 mmol/L (137-145)
[2023-05-30 10:25] VITALS: PULSE 86
[2023-05-30 10:30] VITALS: BP 134/95; PULSE 79; RESP 17; O2SAT 100
[2023-05-30 10:36] LABS: Troponin I < 0.012 ng/mL (0.000-0.034)
[2023-05-30] MEDS: BELLADONNA ALK/PHENOB ELIX 10 ML, MAG HYDROX/ALUMINUM HYD/SIMETH 30 ML, LIDOCAINE HCL 2... PO (11:22)
--- NOTE | 2023-05-30 12:01 | ED.GENADULT ---
HPI - General Adult General Chief complaint: Chest Pain Stated complaint: Chest pain Time Seen by Provider: 05/30/23 10:28 History of Present Illness HPI narrative: Patient is a 53-year-old female with history of pancreatitis and chronic abdominal issues presents ER with epigastric discomfort. Worsening over last night. Associated with burning in her chest. No fevers or chills or sweats. No diarrhea. No exertional chest discomfort. Denies alleviating factors. Related Data Home Medications Medication Instructions Recorded Confirmed bupropion HCl 300 mg 24 hr tablet, 300 mg PO QAM Anxiety 08/08/20 05/06/23 extended release alprazolam 1 mg tablet 1 mg PO BID PRN Anxiety 07/12/22 05/06/23 lisinopril 20 mg tablet 20 mg PO DAILY 01/17/23 05/06/23 cholecalciferol (vitamin D3) 1,250 1,250 mcg PO DAILY 02/28/23 05/06/23 mcg (50,000 unit) capsule estradiol 0.5 mg tablet 0.5 mg PO DAILY 02/28/23 05/06/23 hydroxyzine HCl 25 mg tablet 25 mg PO DAILY 02/28/23 05/06/23 metoprolol succinate 25 mg 25 mg PO DAILY 02/28/23 05/06/23 tablet,extended release 24 hr sertraline 50 mg tablet 50 mg PO DAILY 02/28/23 05/06/23 Allergies Allergy/AdvReac Type Severity Reaction Status Date / Time metoclopramide AdvReac Severe Hallucinati Verified 05/30/23 10:27 ng PMFSH Past Medical History Medical History (Updated 05/30/23 @ 15:06 by Noah Mccracken MD) Anxiety Colon cancer screening Epigastric pain Esophageal stricture GERD (gastroesophageal reflux disease) Hiatal hernia HTN (hypertension) Irritable bowel syndrome Migraines TIA (transient ischemic attack) Surgical History Surgical History H/O: hysterectomy History of endoscopy History of fusion of cervical spine History of Mirtha fundoplication Hx of appendectomy Hx of cholecystectomy Hx of knee surgery Family History Family History Mother Hypertension Family history of diabetes mellitus in first degree relative Sibling Patient's sister is in good health Patient's brother is in good health Father Hypertension Family history of diabetes mellitus in first degree relative Social History Social History Smoking status: Never smoker Second hand tobacco smoke exposure: No Alcohol intake: never Substance use: never Substance use type: does not use Lack of Transportation: No Lack of Food: Sometimes True Current Housing: I Have Housing Concerned About Future Housing: No Difficulty Paying Gas/Electric Bills: No Difficulty Paying for Meds: No Currently Unemployed: No Education: High School Diploma/GED Difficulty w/ Childcare or Family Care: No Living arrangements: with family Occupation/Education: occupation Gender identity (if verbalized by the patient): Female Sexual Orientation (if Verbalized by the Patient): Straight or Heterosexual Spiritual care concerns: No Agree to blood products: Yes Exam Narrative: GENERAL: Well-appearing, well-nourished, and in no acute distress. HEAD: Normocephalic, atraumatic. ENT: Mucous membranes moist. NECK: Supple. CHEST: Clear to auscultation. No respiratory distress. HEART: Regular rate and rhythm. Normal peripheral pulses. ABDOMEN: Soft, tender palpation epigastrium with guarding, nondistended. EXTREMITIES: Normal range of motion. No edema. SKIN: Warm, dry, no rash. NEURO: Alert and oriented x3. PSYCH: Normal mood and affect. Course Course Emergency Course: patient resting comfortably. Toradol given for pain. No change with GI cocktail. Labs imaging unremarkable. Discharge home. Vital Signs Vital signs: Vital Signs Temperature 98.5 F 05/30/23 09:45 Pulse Rate 82 05/30/23 09:45 Respiratory Rate 18 05/30/23 09:45 Blood Pressure 121/86 05/30/23 09:45 Pulse Oximetry 100
--- NOTE | 2023-05-30 12:40 | ECG_ITS ---
Measurements Intervals [place] Rate: 63 P: 38 OR: 111 QRS: 54 QRSD: 77 T: 53 QT: 384 QTc: 395 Interpretive Statements SINUS RHYTHM WITH SHORT OR INTERVAL BASELINE ARTIFACT- I, II, III, AVR, AVF BORDERLINE ECG COMPARED TO ECG 05/30/2023 09:42:22 NO SIGNIFICANT CHANGES Electronically Signed On 05-30-2023 12:59:34 PAIRER INSPECTOR by Danny Dalal D.O.
[2023-05-30 13:19] LABS: Troponin I < 0.012 ng/mL (0.000-0.034)
[2023-05-30] MEDS: KETOROLAC 30 MG/ML VIAL (*BKC) IV PUSH (13:44)
[2023-05-30 13:47] VITALS: BP 135/86; PULSE 73; RESP 15; O2SAT 100
[2023-05-30 15:14] VITALS: BP 130/80; PULSE 70; RESP 15; O2SAT 100
== END 2023-05-30 15:16 | disposition home or self-care (01) ==
PROVIDERS: Emergency Provider Emergency Medicine; PCP Family Medicine
DX: R10.13 Epigastric pain (principal); I10 Essential (primary) hypertension; K21.9 Gastro-esophageal reflux disease without esophagitis; K44.9 Diaphragmatic hernia without obstruction or gangrene; K58.9 Irritable bowel syndrome, unspecified; F41.9 Anxiety disorder, unspecified; Z98.1 Arthrodesis status; Z86.73 Personal history of transient ischemic attack (TIA), and cerebral infarction without residual deficits; Z90.710 Acquired absence of both cervix and uterus; Z90.49 Acquired absence of other specified parts of digestive tract; R94.31 Abnormal electrocardiogram [ECG] [EKG]
CPT/HCPCS: 36415; 71046; 74177; 80053; 83690; 84484; 85025; 85610; 85730; 93005; 96374; 99284; A9270; J1885; Q9967

== ENCOUNTER 2023-07-17 11:28 | Emergency (ER) | payer OTHER, SELFPAY ==
[2023-07-17 11:37] VITALS: BP 112/78; PULSE 111; RESP 16; TEMP 36.9; O2SAT 100
--- NOTE | 2023-07-17 11:38 | ED.GENADULT ---
HPI - General Adult General Chief complaint: Upper Respiratory Infection Stated complaint: Headache/Sinus Source: patient, RN notes reviewed and old records reviewed Mode of arrival: ambulatory Limitations: no limitations History of Present Illness HPI narrative: 53 year female presents to [facility] complaint cough, congestion, myalgia, sore throat, headache, nausea, vomiting this started Saturday. Patient states he has been taking [id number] medications with no relief. Patient denies dizziness, weakness, shortness of breath, chest pain. Related Data Home Medications Medication Instructions Recorded Confirmed bupropion HCl 300 mg 24 hr tablet, 300 mg PO QAM Anxiety 08/08/20 07/17/23 extended release cholecalciferol (vitamin D3) 1,250 1,250 mcg PO DAILY 02/28/23 07/17/23 mcg (50,000 unit) capsule estradiol 0.5 mg tablet 0.5 mg PO DAILY 02/28/23 07/17/23 hydroxyzine HCl 25 mg tablet 25 mg PO DAILY 02/28/23 07/17/23 sertraline 50 mg tablet 50 mg PO DAILY 02/28/23 07/17/23 alprazolam 1 mg tablet 1 mg PO DAILY 06/07/23 07/17/23 Allergies Allergy/AdvReac Type Severity Reaction Status Date / Time metoclopramide AdvReac Severe Hallucinati Verified 07/17/23 11:30 ng Review of Systems Constitutional: Constitutional: Reports no additional constitutional complaints, Reports body ache(s), Denies chills, Denies fatigue, Denies fever(s) and Reports headache(s) Eyes: Eyes: Reports no additional eye complaints and Denies blurry vision ENT: Reports system reviewed and no additional complaints, except as documented, Denies vertigo, Denies dizziness, Denies ear discharge, Denies otalgia, Denies facial pain, Reports headache(s), Reports nasal congestion, Denies nasal discharge, Reports sinus pain, Denies sinus pressure and Reports sore throat Cardiovascular: Cardiovascular: Reports no additional cardiovascular complaints, Denies chest pain, Denies chest pain at rest, Denies rapid heart rate and Denies dyspnea Respiratory: Respiratory: Reports no additional respiratory complaints, Reports chest congestion, Reports cough, Denies pain on inspiration, Denies pain with cough and Denies dyspnea Gastrointestinal: Gastrointestinal: Denies abdominal pain, Denies diarrhea, Reports nausea and Reports vomiting Integumentary/Breasts: Skin/Breast: Denies rash Neurologic: Reports system reviewed and no additional complaints, except as documented, Denies vertigo, Denies dizziness and Denies headache(s) Endocrine: Endocrine: Denies fatigue PMFSH Past Medical History Medical History Anxiety Belching Colon cancer screening Duodenal diverticulum Epigastric pain Esophageal stricture GERD (gastroesophageal reflux disease) Hiatal hernia HTN (hypertension) Irritable bowel syndrome Irritable bowel syndrome with diarrhea Migraines TIA (transient ischemic attack) Surgical History Surgical History H/O: hysterectomy History of endoscopy History of fusion of cervical spine History of Mirtha fundoplication Hx of appendectomy Hx of cholecystectomy Hx of knee surgery Family History Family History Mother Hypertension Family history of diabetes mellitus in first degree relative Sibling Patient's sister is in good health Patient's brother is in good health Father Hypertension Family history of diabetes mellitus in first degree relative Social History Social History Smoking status: Never smoker Second hand tobacco smoke exposure: No Alcohol intake: never Substance use: never Substance use type: does not use Lack of Transportation: No Lack of Food: Sometimes True Current Housing: I Have Housing Concerned About Future Housing: No Difficulty Paying Gas/Electric Bills: No Difficulty Paying
== END 2023-07-17 11:57 | disposition home or self-care (01) ==
PROVIDERS: Emergency Provider Registered Nurse; PCP Family Medicine
DX: B34.9 Viral infection, unspecified (principal); Z20.822 Contact with and (suspected) exposure to COVID-19; K21.9 Gastro-esophageal reflux disease without esophagitis; I10 Essential (primary) hypertension; Z86.73 Personal history of transient ischemic attack (TIA), and cerebral infarction without residual deficits; F41.9 Anxiety disorder, unspecified
CPT/HCPCS: 87426; 87804; 99213; G0463

== ENCOUNTER 2023-08-30 00:06 | Day surgery (SDC) | payer OTHER, SELFPAY ==
[2023-06-07 08:12] VITALS: BMI 23.4
--- NOTE | 2023-06-26 11:58 | SUR.PREOP ---
Patient called regarding upcoming procedure. Message left on pt's vm regarding appointment times.
--- NOTE | 2023-06-28 12:58 | PM.HPGS ---
History of Present Illness History of Present Illness Consent: Risks, benefits, and alternatives have been discussed and questions answered. Patient agrees to proceed with procedure. Chief complaint: Epigastric pain,Esophageal Obstruction,Eructation, Narrative: Altagracia Pham is a 53 year old female Who several years ago had undergone Mirtha fundoplication. Had to be refers because she was having persistent problems with swallowing. She now has continued to have constant gastrointestinal issues. She was found to have gastric retention on GES. Our office started her on omeprazole 40 mg daily and erythromycin 250 mg t.i.d. she states she noticed no improvement in postprandial abdominal burning or gastroparesis symptoms.? She has nausea intermittently throughout the day and even upon awakening in the morning but no vomiting.? She still complains of early satiety and decreased appetite.? She states every 3 days she will have worsening of epigastric abdominal cramping with associated epigastric burning.? She will have a pressure behind her sternum.? She does report increased belching but denies any heartburn or reflux. Review of Systems Review of Systems: All systems reviewed & are unremarkable except as noted in HPI and below PMFSH Past Medical History Medical History Anxiety Belching Colon cancer screening Duodenal diverticulum Epigastric pain Esophageal stricture GERD (gastroesophageal reflux disease) Hiatal hernia HTN (hypertension) Irritable bowel syndrome Irritable bowel syndrome with diarrhea Migraines TIA (transient ischemic attack) Surgical History Surgical History H/O: hysterectomy History of endoscopy History of fusion of cervical spine History of Mirtha fundoplication Hx of appendectomy Hx of cholecystectomy Hx of knee surgery Family History Family History Mother Hypertension Family history of diabetes mellitus in first degree relative Sibling Patient's sister is in good health Patient's brother is in good health Father Hypertension Family history of diabetes mellitus in first degree relative Social History Social History Smoking status: Never smoker Second hand tobacco smoke exposure: No Alcohol intake: never Substance use: never Substance use type: does not use Lack of Transportation: No Lack of Food: Sometimes True Current Housing: I Have Housing Concerned About Future Housing: No Difficulty Paying Gas/Electric Bills: No Difficulty Paying for Meds: No Currently Unemployed: No Education: High School Diploma/GED Difficulty w/ Childcare or Family Care: No Living arrangements: with family Occupation/Education: occupation Gender identity (if verbalized by the patient): Female Sexual Orientation (if Verbalized by the Patient): Straight or Heterosexual Spiritual care concerns: No Agree to blood products: Yes Meds Home Medications and Allergies Home Medications Medication Instructions Recorded Confirmed Type bupropion HCl 300 mg 24 hr tablet, 300 mg PO QAM Anxiety 08/08/20 06/07/23 History extended release alprazolam 1 mg tablet 1 mg PO BID PRN Anxiety 07/12/22 06/07/23 History cholecalciferol (vitamin D3) 1,250 1,250 mcg PO DAILY 02/28/23 06/07/23 History mcg (50,000 unit) capsule estradiol 0.5 mg tablet 0.5 mg PO DAILY 02/28/23 06/07/23 History hydroxyzine HCl 25 mg tablet 25 mg PO DAILY 02/28/23 06/07/23 History sertraline 50 mg tablet 50 mg PO DAILY 02/28/23 06/07/23 History omeprazole 40 mg capsule,delayed 40 mg PO DAILY #30 caps 05/06/23 06/07/23 Rx release erythromycin 500 mg tablet 500 mg PO Q8H #90 tabs 06/03/23 06/07/23 Rx alprazolam 1 mg tablet mg 06/07/23 History Allergies Allergy/AdvReac Type Severity Reaction
[2023-08-19 13:58] VITALS: BMI 23.4
--- NOTE | 2023-08-19 14:40 | PC.NURSE ---
Pt recently had a stroke in June and hemangioma removed last fall. Pt states she is not currently on any blood thinners and had no residual effects from the stroke or hemangioma. Request for last office note sent to pt's neurologist, Dr. Norris. Pt could not remember mira.
--- NOTE | 2023-08-19 14:44 | PC.NURSE ---
Edit for last note- Pt had meningioma removed last fall, not hemangioma.
--- NOTE | 2023-08-28 15:02 | SUR.PREOP ---
Patient called regarding upcoming procedure. Reviewed preop instructions, appointment times, and procedure prep.
--- NOTE | 2023-08-29 10:54 | PC.NURSE ---
Spoke with Dr. Norirs's office regarding last office note. Office staff sent message to Dr. Norris's RN regarding request for note to be faxed.
--- NOTE | 2023-08-29 13:12 | PC.NURSE ---
When initial PAT interview was completed, it was understood that the patient had had a stroke 06/2023 where she was given tPA. Requests for last office visit notes were sent to the pt's neurologist Dr. Norris on 08/19/2023 and 08/28/[address] Norris's office was called today for requests for notes and the request was denied stating they weren't allowed to give out information unless they were the physician ordering the EGD. I then spoke with the pt as Dr. Borja from anesthesia was not comfortable proceeding with the procedure with the pt's recent hx of a stroke. After speaking to the patient and relaying all of this information, the pt stated that she had not had a stroke in June, but instead had a delicate migraine that mimicked a stroke. tPA was given, but a stroke was later ruled out. This information was relayed back to Dr. Borja and he stated he was ok to proceed with the EGD. The patient was called back and informed that she was ok to have the procedure tomorrow. She was in contact with Dr. Norris's office and stated they will be faxing us the last office visit note today. Request for last office note was sent via fax and voicemail to Dr. Askew's office.
[2023-08-30 12:11] VITALS: BP 131/87; PULSE 89; RESP 14; TEMP 36.5; O2SAT 100
--- NOTE | 2023-08-30 12:36 | PM.HPGS ---
History of Present Illness History of Present Illness Consent: Risks, benefits, and alternatives have been discussed and questions answered. Patient agrees to proceed with procedure. Chief complaint: Epigastric pain,Esophageal Obstruction,Eructation, Narrative: Altagracia Pham is a 53 year old female here for egd., She has a history of fundoplication was but was eventually reversed due to complications and have had GI problems since.? EGD completed with Dr. Lopes 12/2022 with non-obstructive esophageal stricture that was dilated and a moderate amount of retained food was seen in the body of stomach.? Gastric emptying study completed due to retained food and noted 82% retained at the 2 hour matty and 56 %amount of food retained at the 4 hour matty consistent with gastroparesis.? To note she had a previous manometry study in 2014 that was normal (recs reviewed)-this was done prior to Ramon fundoplication. She tried erythromycin without any help, she is allergic to reglan. Now using zofran as needed. Still with bloating and fullness after eating. Review of Systems Review of Systems: All systems reviewed & are unremarkable except as noted in HPI and below PMFSH Past Medical History Medical History (Updated 08/30/23 @ 12:38 by Ben Turner MD) Anxiety Belching Colon cancer screening Duodenal diverticulum Epigastric pain Esophageal stricture Gastroparesis GERD (gastroesophageal reflux disease) Hiatal hernia HTN (hypertension) Irritable bowel syndrome Irritable bowel syndrome with diarrhea Migraines TIA (transient ischemic attack) Surgical History Surgical History H/O: hysterectomy History of endoscopy History of fusion of cervical spine History of Mirtha fundoplication Hx of appendectomy Hx of cholecystectomy Hx of knee surgery Family History Family History Mother Hypertension Family history of diabetes mellitus in first degree relative Sibling Patient's sister is in good health Patient's brother is in good health Father Hypertension Family history of diabetes mellitus in first degree relative Social History Social History Smoking status: Never smoker Second hand tobacco smoke exposure: No Alcohol intake: never Substance use: never Substance use type: does not use Lack of Transportation: No Lack of Food: Sometimes True Current Housing: I Have Housing Concerned About Future Housing: No Difficulty Paying Gas/Electric Bills: No Difficulty Paying for Meds: No Currently Unemployed: No Education: High School Diploma/GED Difficulty w/ Childcare or Family Care: No Living arrangements: with family Occupation/Education: occupation Gender identity (if verbalized by the patient): Female Sexual Orientation (if Verbalized by the Patient): Straight or Heterosexual Spiritual care concerns: No Agree to blood products: Yes Meds Home Medications and Allergies Home Medications Medication Instructions Recorded Confirmed Type bupropion HCl 300 mg 24 hr tablet, 300 mg PO QAM Anxiety 08/08/20 08/19/23 History extended release cholecalciferol (vitamin D3) 1,250 1,250 mcg PO DAILY 02/28/23 08/19/23 History mcg (50,000 unit) capsule estradiol 0.5 mg tablet 0.5 mg PO DAILY 02/28/23 08/19/23 History sertraline 50 mg tablet 50 mg PO DAILY 02/28/23 08/19/23 History alprazolam 1 mg tablet 1 mg PO DAILY PRN Anxiety 06/07/23 08/19/23 History Allergies Allergy/AdvReac Type Severity Reaction Status Date / Time metoclopramide AdvReac Severe Hallucinati Verified 08/30/23 12:10 ng Vital Signs Vital Signs - 24 hr 08/30/23 12:11 Temperature 97.7 F Pulse Rate 89 Respiratory Rate 14 Blood Pressure 131/87 Pulse Oximetry 100 Oxygen Delivery Room Air Exam Const: General: comfortable and
[2023-08-30] MEDS: LACTATED RINGERS 1,000 ML 150 ML IV CONT (12:44)
[2023-08-30 12:57] VITALS: BP 94/56; PULSE 86; RESP 22; O2SAT 100
--- NOTE | 2023-08-30 12:57 | WPDANESEPPF ---
Anes - Initial Pre Proc Eval Procedure: Operation Date: 08/30/23 13:30 Proposed Procedures p Esophagogastroduodenoscopy - Ben Turner MD Date/Time: 08/30/23 12:57 Surgeon: Ben Turner MD Pre Op Diagnosis: Epigastric pain,Esophageal Obstruction,Eructation, Patient Data Age: 53 Gender: F Height: 1.6 m Weight: 59.2 kg Last Vital Signs Temp 97.7 F 08/30/23 12:11 Pulse 89 08/30/23 12:11 Resp 14 08/30/23 12:11 BP 131/87 08/30/23 12:11 Pulse Ox 100 08/30/23 12:11 O2 Del Method Room Air 08/30/23 12:11 Allergies Allergy/AdvReac Type Severity Reaction Status Date / Time metoclopramide AdvReac Severe Hallucinati Verified 08/30/23 12:10 ng Home Medications Medication Instructions Recorded Confirmed Type bupropion HCl 300 mg 24 hr tablet, 300 mg PO QAM Anxiety 08/08/20 08/19/23 History extended release cholecalciferol (vitamin D3) 1,250 1,250 mcg PO DAILY 02/28/23 08/19/23 History mcg (50,000 unit) capsule estradiol 0.5 mg tablet 0.5 mg PO DAILY 02/28/23 08/19/23 History sertraline 50 mg tablet 50 mg PO DAILY 02/28/23 08/19/23 History alprazolam 1 mg tablet 1 mg PO DAILY PRN Anxiety 06/07/23 08/19/23 History Patient hx anesthesia problems: none Family hx anesthesia problems: none Results Review: All pre-operative results and documents have been reviewed as part of the pre-operative evaluation. [facility] Past Medical History Medical History (Updated 08/30/23 @ 12:38 by Ben Turner MD) Anxiety Belching Colon cancer screening Duodenal diverticulum Epigastric pain Esophageal stricture Gastroparesis GERD (gastroesophageal reflux disease) Hiatal hernia HTN (hypertension) Irritable bowel syndrome Irritable bowel syndrome with diarrhea Migraines TIA (transient ischemic attack) Surgical History Surgical History H/O: hysterectomy History of endoscopy History of fusion of cervical spine History of Mirtha fundoplication Hx of appendectomy Hx of cholecystectomy Hx of knee surgery Family History Family History Mother Hypertension Family history of diabetes mellitus in first degree relative Sibling Patient's sister is in good health Patient's brother is in good health Father Hypertension Family history of diabetes mellitus in first degree relative Social History Social History Smoking status: Never smoker Second hand tobacco smoke exposure: No Alcohol intake: never Substance use: never Substance use type: does not use Lack of Transportation: No Lack of Food: Sometimes True Current Housing: I Have Housing Concerned About Future Housing: No Difficulty Paying Gas/Electric Bills: No Difficulty Paying for Meds: No Currently Unemployed: No Education: High School Diploma/GED Difficulty w/ Childcare or Family Care: No Living arrangements: with family Occupation/Education: occupation Gender identity (if verbalized by the patient): Female Sexual Orientation (if Verbalized by the Patient): Straight or Heterosexual Spiritual care concerns: No Agree to blood products: Yes Anes - Eval Final PreProcedure Day of Procedure 08/30/23 12:57 Patient weight: normal Heart: regular rate and rhythm Lungs: clear to auscultation Airway: Mallampati scale class II Neurological: alert and oriented Last oral intake: >/= 8 hours ASA classification: III Emergent: no Anesthetic plan: proceed Anesthesia type and monitoring: general GIVS and standard monitoring Results Review: All pre-operative results and documents have been reviewed as part of the pre-operative evaluation. Informed Consent: The patient's anesthetic plan and its attendant risks and benefits were discussed with the patient/family/POA. Questions were solicited
[2023-08-30 13:07] VITALS: BP 116/58; PULSE 75; RESP 20; O2SAT 100
[2023-08-30 13:17] VITALS: BP 130/75; PULSE 80; RESP 16; O2SAT 100
== END 2023-08-30 13:28 | disposition home or self-care (01) ==
PROVIDERS: PCP Family Medicine; Visit Provider Internal Medicine Gastroenterology
PROC: 0DJ08ZZ Inspection of Upper Intestinal Tract, Via Natural or Artificial Opening Endoscopic (ICD-10-PCS; CPT 43235; principal; 2023-08-30 13:30)
DX: K31.84 Gastroparesis (principal); R11.0 Nausea; R14.0 Abdominal distension (gaseous); I10 Essential (primary) hypertension; Z86.73 Personal history of transient ischemic attack (TIA), and cerebral infarction without residual deficits; F41.9 Anxiety disorder, unspecified; K21.9 Gastro-esophageal reflux disease without esophagitis; Z98.1 Arthrodesis status
CPT/HCPCS: 43239; 88305; J2704; J7120

== ENCOUNTER 2023-09-25 14:23 | Emergency (ER) | payer OTHER, SELFPAY ==
[2023-09-25 14:31] VITALS: BP 115/71; PULSE 92; RESP 16; TEMP 36.8; O2SAT 100
--- NOTE | 2023-09-25 14:38 | ED.SKABFB ---
HPI - Skin/Abscess/Foreign Bdy General Chief complaint: Skin/Abscess/Foreign Body Stated complaint: Rash Time Seen by Provider: 09/25/23 14:32 Source: patient Mode of arrival: ambulatory Limitations: no limitations History of Present Illness HPI narrative: Meena is a 53-year-old female patient presenting to the clinic today with complaints of a rash that just developed yesterday. She reports that she has the rash on her arms, legs, inner thighs, around her waist, left chest, and to the left side of her neck near her ear. Rash is itchy and raised. No new changes in environment, soaps, lotions, detergents, shampoos, medications, animals, or food. Denies using any hot tubs/pool recently Related Data Home Medications Medication Instructions Recorded Confirmed bupropion HCl 300 mg 24 hr tablet, 300 mg PO QAM Anxiety 08/08/20 09/25/23 extended release cholecalciferol (vitamin D3) 1,250 1,250 mcg PO DAILY 02/28/23 09/25/23 mcg (50,000 unit) capsule estradiol 0.5 mg tablet 0.5 mg PO DAILY 02/28/23 09/25/23 sertraline 50 mg tablet 50 mg PO DAILY 02/28/23 09/25/23 alprazolam 1 mg tablet 1 mg PO DAILY PRN Anxiety 06/07/23 09/25/23 Allergies Allergy/AdvReac Type Severity Reaction Status Date / Time metoclopramide AdvReac Severe Hallucinati Verified 09/25/23 14:27 ng Review of Systems Review of Systems: Pertinent positives per HPI. Patient denies any fever, chills, headache, visual changes, dizziness, cough, runny nose, sore throat, shortness of breath, chest pain, palpitations, nausea, vomiting, diarrhea, constipation, abdominal pain, or any urinary issues. [facility] Past Medical History Medical History Anxiety Belching Colon cancer screening Duodenal diverticulum Epigastric pain Esophageal stricture Gastroparesis GERD (gastroesophageal reflux disease) Hiatal hernia HTN (hypertension) Irritable bowel syndrome Irritable bowel syndrome with diarrhea Migraines TIA (transient ischemic attack) Surgical History Surgical History H/O: hysterectomy History of endoscopy History of fusion of cervical spine History of Mirtha fundoplication Hx of appendectomy Hx of cholecystectomy Hx of knee surgery Family History Family History Mother Hypertension Family history of diabetes mellitus in first degree relative Sibling Patient's sister is in good health Patient's brother is in good health Father Hypertension Family history of diabetes mellitus in first degree relative Social History Social History Smoking status: Never smoker Second hand tobacco smoke exposure: No Alcohol intake: never Substance use: never Substance use type: does not use Lack of Transportation: No Lack of Food: Sometimes True Current Housing: I Have Housing Concerned About Future Housing: No Difficulty Paying Gas/Electric Bills: No Difficulty Paying for Meds: No Currently Unemployed: No Education: High School Diploma/GED Difficulty w/ Childcare or Family Care: No Living arrangements: with family Occupation/Education: occupation Gender identity (if verbalized by the patient): Female Sexual Orientation (if Verbalized by the Patient): Straight or Heterosexual Spiritual care concerns: No Agree to blood products: Yes Comments At the time of my signature, I reviewed and agree with the nursing past medical, surgical, social, and family history. There is no relevant family history pertinent to the patient complaint. Exam Narrative: General: Well-developed, well nourished, in no apparent distress Head: Normocephalic, atraumatic. Cardio: Regular rate and rhythm, s1 and s2 normal, no murmur appreciated. Resp: Clear to auscultation bilaterally, no rhonchi, rales, whee
== END 2023-09-25 14:45 | disposition home or self-care (01) ==
PROVIDERS: Emergency Provider Nurse Practitioner Family; PCP Family Medicine
DX: T78.40XA Allergy, unspecified, initial encounter (principal); K21.9 Gastro-esophageal reflux disease without esophagitis; I10 Essential (primary) hypertension; Z86.73 Personal history of transient ischemic attack (TIA), and cerebral infarction without residual deficits; K31.84 Gastroparesis; F41.9 Anxiety disorder, unspecified
CPT/HCPCS: 99213; G0463

== ENCOUNTER 2023-11-11 14:42 | Outpatient (CLI) | payer OTHER, SELFPAY ==
--- NOTE | ~2023-11-11 | XR_ITS ---
EXAMINATION: XR chest 2V Exam Date/Time: 11/11/2023 14:47 CDT HISTORY: COUGH Comparison: 05/30/2023. RESULT: Lines, tubes, and devices: Partially visualized cervical fusion hardware. Cholecystectomy clips. Lungs and pleura: Clear. Cardiomediastinal silhouette: Stable. Other: No acute osseous or upper abdominal finding. IMPRESSION: No acute cardiopulmonary process. Reviewed, dictated and finalized at location K.
--- NOTE | ~2023-11-11 | US_ITS ---
Limited ABDOMINAL ULTRASOUND Ordering provider: Morgan Butler, T[employer] CONSULTANT History: . ABD PAIN . Comparison: None. FINDINGS: LIVER: Normal size and echotexture. No focal hepatic lesions or perihepatic fluid collections are mary ntified. Normal flow of the portal vein. GALLBLADDER: Surgically removed. BILIARY DUCTS: No evidence for intra or extrahepatic biliary dilation. Common bile duct measures 5.6 mm in diameter which is within normal limits. PANCREAS: Partially seen with no significant abnormality in the visualized portion. UPPER ABDOMINAL AORTA: Normal in caliber. IVC: Patent. FREE FLUID: None. IMPRESSION: 1. No definite abnormality seen. Reviewed, dictated and finalized at location A.
== END 2023-11-11 14:43 | disposition home or self-care (01) ==
LOC: ANHIMG 14:43
PROVIDERS: PCP Family Medicine; Visit Provider Nurse Practitioner Family
DX: R10.9 Unspecified abdominal pain (principal); R05.9 Cough, unspecified
CPT/HCPCS: 71046; 76705

== ENCOUNTER 2023-12-02 22:18 | Emergency (ER) | payer OTHER, SELFPAY ==
--- NOTE | ~2023-12-02 | XR_ITS ---
EXAMINATION: XR chest 2V DATE: 12/02/2023 22:48 INDICATION: Chest pain. Shortness of breath. TECHNIQUE: Frontal and lateral views of the chest were obtained. COMPARISON: Chest 2 views 11/11/2023 FINDINGS: There is no pneumonia, pleural effusion, or pneumothorax. The heart size is normal. There a re changes of posterior fusion procedure in cervical spine. Surgical clips in the right upper quadran t are likely from cholecystectomy. IMPRESSION: 1. No acute cardiopulmonary disease. Reviewed, dictated and finalized at location E.
--- NOTE | 2023-12-02 22:20 | ECG_ITS ---
Test Date: 2023-12-02 22:31:31 Measurements Intervals [place] Rate: 88 P: 45 AK: 124 QRS: 51 QRSD: 78 T: 49 QT: 346 QTc: 419 Interpretive Statements SINUS RHYTHM LOW QRS VOLTAGE IN PRECORDIAL LEADS BASELINE ARTIFACT- I, II, III, AVR, AVL, AVF NORMAL ECG No previous ECG available for comparison Electronically Signed On 12-03-2023 10:03:59 CDT by Danny Dalal D.O.
[2023-12-02 22:42] LABS: Basophils Percent Auto 0.7 % (0.2-1.2); Eosinophils Absolute Auto 0.1 K/mm3 (0-0.3); Eosinophils Percent Auto 1.9 % (0-4.4); Hematocrit 44.7 % (37.0-47.0); Hemoglobin 14.8 g/dL (12.0-15.0); Immature Granulocyte Absolute 0.02 K/mm3 (0.00-0.031); Immature Granulocyte Percent A 0.3 % (0-0.5); Lymphocytes Absolute Auto 1.84 K/mm3 (0.9-3.2); Mean Corpuscular HGB Conc 33.1 g/dl (32-36); Mean Corpuscular Volume 87.5 fl (80-100); Mean Platelet Volume 8.8 fl (7.4-10.4); Monocytes Absolute Auto 0.4 K/mm3 (0.1-0.6); Monocytes Percent Auto 5.9 % (2.6-8.5); Neutrophils Absolute Auto 3.6 K/mm3 (1.3-6.7); Neutrophils Percent Auto 60.2 % (45.5-73.1); Platelet Count Result 275 k/mm3 (150-375); Red Blood Count 5.11 M/mm3 (4.2-5.4); Red Cell Distribution Width 13.1 % (11.5-14.5); White Blood Count 5.9 K/mm3 (4.5-10.0)
[2023-12-02 22:57] LABS: Alanine Aminotransferase 9 U/L (6-35); Albumin Level 4.6 g/dL (3.5-5.1); Alkaline Phosphatase 87 U/L (38-126); Anion Gap 10 mmol/L (4-12); Aspartate Amino Transferase 17 U/L (14-36); Bilirubin,Total 0.9 mg/dL (0.2-1.3); Blood Urea Nitrogen 14 mg/dL (7-17); Calcium 9.3 mg/dL (8.4-10.2); Carbon Dioxide 27 mmol/L (22-30); Chloride 106 mmol/L (98-107); Estimated CRCL calculation 45 ml/min; Estimated Glomerular Filt Rate 58; Glucose 103 mg/dL (65-110); Lipase 227 U/L (23-300); Potassium 3.6 mmol/L (3.4-5.0); Prothrombin Time 13.4 Seconds (11.1-14.7); Sodium 143 mmol/L (137-145)
[2023-12-02 22:58] LABS: Partial Thromboplastin Time 23.4 Seconds (22.3-36.8)
[2023-12-02 23:07] LABS: Troponin I < 0.012 ng/mL (0.000-0.034)
[2023-12-03 02:45] VITALS: BP 140/85; PULSE 70; RESP 15; O2SAT 100
[2023-12-03] MEDS: ASPIRIN 81 MG CHEWABLE TABLET 324 MG PO (02:51)
[2023-12-03 03:04] LABS: Troponin I < 0.012 ng/mL (0.000-0.034)
--- NOTE | 2023-12-03 03:06 | ED.CHESTPAIN ---
HPI - Chest Pain General Chief Complaint: Chest Pain Stated Complaint: chest/epigastric pain Time Seen by Provider: 12/03/23 02:55 History of Present Illness HPI narrative: Patient is a 53-year-old female who presents to the emergency department this evening complaining of epigastric pain. Patient states that when the pain gets really bad it does radiate to her chest. Patient denies any history of cardiovascular disease. Patient states that she did have a history of hiatal hernia and had surgery for this. She states that ever since she had the surgery she has been having problems in this epigastric. Surgery filled and she had to go back for a revision. Patient states that due to this she has to have frequent upper endoscopies and multiple GI visits secondary to this. Patient admits that she is not on any Protonix or medications for acid reflux. She has only been taking ibuprofen for pain with minimal to no relief. She denies any fevers or chills, nausea or vomiting, any shortness of breath or sharp stabbing chest pain. No additional symptoms or concerns at this time. Related Data Home Medications Medication Instructions Recorded Confirmed bupropion HCl 300 mg 24 hr tablet, 300 mg PO QAM Anxiety 08/08/20 09/25/23 extended release cholecalciferol (vitamin D3) 1,250 1,250 mcg PO DAILY 02/28/23 09/25/23 mcg (50,000 unit) capsule estradiol 0.5 mg tablet 0.5 mg PO DAILY 02/28/23 09/25/23 sertraline 50 mg tablet 50 mg PO DAILY 02/28/23 09/25/23 alprazolam 1 mg tablet 1 mg PO DAILY PRN Anxiety 06/07/23 09/25/23 Allergies Allergy/AdvReac Type Severity Reaction Status Date / Time metoclopramide AdvReac Severe Hallucinati Verified 12/02/23 22:19 ng Review of Systems Review of Systems: All systems are reviewed and are negative unless stated otherwise in the HPI. PMF Past Medical History Medical History Anxiety Belching Colon cancer screening Duodenal diverticulum Epigastric pain Esophageal stricture Gastroparesis GERD (gastroesophageal reflux disease) Hiatal hernia HTN (hypertension) Irritable bowel syndrome Irritable bowel syndrome with diarrhea Migraines TIA (transient ischemic attack) Surgical History Surgical History H/O: hysterectomy History of endoscopy History of fusion of cervical spine History of Mirtha fundoplication Hx of appendectomy Hx of cholecystectomy Hx of knee surgery Family History Family History Mother Hypertension Family history of diabetes mellitus in first degree relative Sibling Patient's sister is in good health Patient's brother is in good health Father Hypertension Family history of diabetes mellitus in first degree relative Social History Social History Smoking status: Never smoker Second hand tobacco smoke exposure: No Alcohol intake: never Substance use: never Substance use type: does not use Lack of Transportation: No Lack of Food: Sometimes True Current Housing: I Have Housing Concerned About Future Housing: No Difficulty Paying Gas/Electric Bills: No Difficulty Paying for Meds: No Currently Unemployed: No Education: High School Diploma/GED Difficulty w/ Childcare or Family Care: No Living arrangements: with family Occupation/Education: occupation Gender identity (if verbalized by the patient): Female Sexual Orientation (if Verbalized by the Patient): Straight or Heterosexual Spiritual care concerns: No Agree to blood products: Yes Exam Narrative: General: Alert, awake, afebrile, in no acute distress. HEENT: PERRL, no rhinorrhea, no post nasal drip, oropharynx clear. Cardiovascular: Regular rate and rhythm, no murmurs, rubs or gallops, no peripheral edema. Respiratory: Clear to auscu
[2023-12-03] MEDS: SUCRALFATE 1 GM TABLET PO (03:55)
[2023-12-03] MEDS: PANTOPRAZOLE 40 MG TABLET PO (03:56)
[2023-12-03] MEDS: BELLADONNA ALK/PHENOB ELIX 10 ML, MAG HYDROX/ALUMINUM HYD/SIMETH 30 ML, LIDOCAINE HCL 2... PO (03:56)
[2023-12-03 04:11] VITALS: BP 145/85; PULSE 77; RESP 15; O2SAT 100
== END 2023-12-03 04:13 | disposition home or self-care (01) ==
PROVIDERS: Emergency Provider Emergency Medicine; PCP Family Medicine
DX: R10.13 Epigastric pain (principal); F41.9 Anxiety disorder, unspecified; K21.9 Gastro-esophageal reflux disease without esophagitis; I10 Essential (primary) hypertension; Z86.73 Personal history of transient ischemic attack (TIA), and cerebral infarction without residual deficits
CPT/HCPCS: 36415; 71046; 80053; 83690; 84484; 85025; 85610; 85730; 93005; 99284; A9270

== ENCOUNTER 2024-10-11 18:02 | Emergency (ER) | payer OTHER, SELFPAY ==
--- NOTE | ~2024-10-11 | XR_ITS ---
HISTORY: injury COMPARISON: None TECHNIQUE: 4 views of the left knee were performed. FINDINGS: No acute or subacute fracture, erosion, lytic or sclerotic lesion. Medial and lateral tibiofemoral joint space narrowing is identified. No suprapatellar joint effusion is identified. The infrapatellar joint space is clear. IMPRESSION: Degenerative disease, without acute fracture. Reviewed, dictated and finalized at location A.
--- NOTE | ~2024-10-11 | XR_ITS ---
HISTORY: fall, left knee and ankle pain COMPARISON: None TECHNIQUE: 3 views of the left ankle were performed FINDINGS: No acute fracture or dislocation. No significant soft tissue swelling. The ankle mortise is preserved. Bone mineralization is age-appropriate. Prominent calcaneal spur. IMPRESSION: No acute fracture or dislocation. Reviewed, dictated and finalized at location A.
--- NOTE | 2024-10-11 18:05 | ED.LOWEXIN ---
HPI - Extremity Injury (Lower) General Chief Complaint: Extremity Injury, Lower Stated Complaint: INJURED L KNEE/L ANKLE Source: patient Mode of arrival: ambulatory Limitations: no limitations History of Present Illness HPI Narrative: Patient is a 54 year old female who presents to the clinic with complaints of left ankle and left knee pain. She was walking outside in a yard and unsure of what she tripped over. Patient's ankle twisted when she fell and her left knee landed on a cement block. She has been using ice and ibuprofen for pain control. Denies any numbness, tingling, or radiation of pain. Related Data Home Medications Medication Instructions Recorded Confirmed Last Taken Type bupropion HCl 300 mg 24 hr tablet, 300 mg PO QAM Anxiety 08/08/20 12/04/23 01/17/23 History extended release cholecalciferol (vitamin D3) 1,250 1,250 mcg PO DAILY 02/28/23 12/04/23 Unknown History mcg (50,000 unit) capsule estradiol 0.5 mg tablet 0.5 mg PO DAILY 02/28/23 12/04/23 Unknown History sertraline 50 mg tablet 50 mg PO DAILY 02/28/23 12/04/23 Unknown History alprazolam 1 mg tablet 1 mg PO DAILY PRN Anxiety 06/07/23 12/04/23 Unknown History Allergies Allergy/AdvReac Type Severity Reaction Status Date / Time metoclopramide AdvReac Severe Hallucinati Verified 12/04/23 08:40 ng Review of Systems Review of Systems: CONSTITUTIONAL: Denies body aches, fever, chills EYES: Denies visual changes ENT: Denies rhinorrhea, congestion CARDIOVASCULAR: Denies chest pain, palpitations, or edema. RESPIRATORY: Denies cough or dyspnea. SKIN: Denies rash, itching, or wounds. MUSCULOSKELETAL: Denies back pain, joint pain, or myalgia. Reports left ankle and left knee pain. NEUROLOGIC: Denies headache, numbness, tingling, or weakness. All systems reviewed & are unremarkable except as noted in HPI and below PMFSH Past Medical History Medical History Anxiety Belching Colon cancer screening Duodenal diverticulum Epigastric pain Esophageal stricture Gastroparesis GERD (gastroesophageal reflux disease) Hiatal hernia HTN (hypertension) Irritable bowel syndrome Irritable bowel syndrome with diarrhea Migraines TIA (transient ischemic attack) Surgical History Surgical History H/O: hysterectomy History of endoscopy History of fusion of cervical spine History of Mirtha fundoplication Hx of appendectomy Hx of cholecystectomy Hx of knee surgery Family History Family History Mother Hypertension Family history of diabetes mellitus in first degree relative Sibling Patient's sister is in good health Patient's brother is in good health Father Hypertension Family history of diabetes mellitus in first degree relative Social History Social History Smoking status: Never smoker Second hand tobacco smoke exposure: No Alcohol intake: never Substance use: never Substance use type: does not use Lack of Transportation: No Lack of Food: Sometimes True Current Housing: I Have Housing Concerned About Future Housing: No Difficulty Paying Gas/Electric Bills: No Difficulty Paying for Meds: No Currently Unemployed: No Education: High School Diploma/GED Difficulty w/ Childcare or Family Care: No Living arrangements: with family Occupation/Education: occupation Gender identity (if verbalized by the patient): Female Sexual Orientation (if Verbalized by the Patient): Straight or Heterosexual Spiritual care concerns: No Agree to blood products: Yes Comments At time of signature, I have reviewed and agree with nursing past medical, surgical, social and family history unless otherwise noted. Please see nursing chart for further information. There is no relevant family history pertinent to the presenting complaint. Exam Narrative: MUSCULOSKELETAL EXAM GENERAL: Well-appearing, well-nourished, and in no acute distress. HEAD: Normocephalic, atraumatic. NECK: Supple. CHEST: Speaks in full sentences. No respiratory distress. HEART: Regular rate and rhythm. Normal and equal peripheral pulses. EXTREMITIES: Left knee has decreased strength but normal sensation, full range of motion with flexion and extension, but endorses pain with movement. There is no edema noted. No ecchymosis, No point tenderness. No open wounds, skin tenting, or obvious deformity; alignment normal, pulse palpable and equal bilaterally, skin warm, dry, pink. Capillary refill less than 3 seconds. Distal sensation intact. Left Ankle has decreased strength but normal sensation, decreased range of motion with flexion and extension, and endorses pain with movement. The is edema noted. No ecchymosis, No point tenderness. No open wounds, skin tenting, or obvious deformity; alignment normal, pulse palpable and equal bilaterally, skin warm, dry, pink. Capillary refill less than 3 seconds. Distal sensation intact. SKIN: Warm, dry, no rash. NEURO: Alert and oriented x3. PSYCH: Normal mood and affect Course Course Level of Care: Express Care Visit MDM - Extremity Injury (Lower) MDM Narrative Medical decision making narrative: Discussed physical exam findings and xrays. Tulio wrap for support. Advised supportive measures and signs/symptoms to go to the ER. Pt is appropriate for outpatient treatment and follow up. Differential Diagnosis Differential diagnosis: Likely ankle sprain and strain, ankle fracture and other (knee sprain, knee fracture) Critical Care Time Critical Care Time Critical Care Time: No Discharge Plan Discharge Clinical Impression: Sprain and strain of ankle, Sprain of knee Patient Disposition: Home Condition: Stable Instructions: Ankle Sprain (DC), Knee Sprain (DC) Additional Instructions: Xray showed no fracture. Minimize activities that aggravate the condition The RICE protocol. Follow the RICE protocol as soon as possible after your injury: Rest your ankle by not walking on it. Ice should be immediately applied to keep the swelling down. It can be used for 20 to 30 minutes, three or four times daily. Do not apply ice directly to your skin. Compression dressings, bandages or tulio-wraps will immobilize and support your injured ankle. Elevate your ankle above the level of your heart as often as possible during the first 48 hours. Medication: Nonsteroidal anti-inflammatory drugs (NSAIDs) such as ibuprofen and naproxen can help control pain and swelling. Please schedule a follow-up visit with your personal physician for further evaluation and treatment within 1week If your symptoms persist, change or worsen significantly before you can contact your personal physician then please, without delay, go to the emergency department for further evaluation. Patient Language: Romansh Prescriptions: No Action estradiol 0.5 mg tablet 0.5 mg PO DAILY sertraline 50 mg tablet 50 mg PO DAILY cholecalciferol (vitamin D3) 1,250 mcg (50,000 unit) capsule 1,250 mcg PO DAILY prednisone 20 mg tablet 40 mg PO DAILY 5 Days Qty: 10 0RF triamcinolone acetonide 0.1 % cream 1 applic topical BID 7 Days Qty: 30 0RF omeprazole 40 mg capsule,delayed release(/EC) 40 mg PO BID Qty: 60 3RF dicyclomine 10 mg capsule 10 mg PO QID Qty: 120 1RF erythromycin 250 mg tablet 250 mg PO .AC TID Qty: 90 3RF sucralfate [Carafate] 1 gram tablet 1 g PO ACHS Qty: 120 3RF alprazolam 1 mg tablet 1 mg PO DAILY PRN (Reason: Anxiety) bupropion HCl 300 mg Tablet Extended Release 24 Hr 300 mg PO QAM Follow-up/Referrals: Inder,Bianca Sorensen NP [Primary Care Provider] - Stand Alone Forms: Work/School Release IP Time of Disposition: 19:40
[2024-10-11 18:29] VITALS: BP 128/90; PULSE 87; RESP 16; TEMP 36.4; O2SAT 100
== END 2024-10-11 19:48 | disposition home or self-care (01) ==
PROVIDERS: PCP Nurse Practitioner Family
DX: S93.402A Sprain of unspecified ligament of left ankle, initial encounter (principal); S96.912A Strain of unspecified muscle and tendon at ankle and foot level, left foot, initial encounter; S83.92XA Sprain of unspecified site of left knee, initial encounter; W01.0XXA Fall on same level from slipping, tripping and stumbling without subsequent striking against object, initial encounter; K21.9 Gastro-esophageal reflux disease without esophagitis; I10 Essential (primary) hypertension; Z86.73 Personal history of transient ischemic attack (TIA), and cerebral infarction without residual deficits; K31.84 Gastroparesis; F41.9 Anxiety disorder, unspecified
CPT/HCPCS: 73564; 73610; 99214; G0463

== ENCOUNTER 2025-01-19 14:49 | Emergency (ER) | payer OTHER, SELFPAY ==
--- NOTE | 2025-01-19 14:59 | ED.GENADULT ---
HPI - General Adult General Chief complaint: Headache Stated complaint: Headache/Vomiting/Blurry Vision Time Seen by Provider: 01/19/25 15:04 Source: patient, RN notes reviewed and old records reviewed Mode of arrival: ambulatory Limitations: no limitations History of Present Illness HPI narrative: 55-year-old female presents to the [facility] with complaints of a headache. Patient states the headache started on , continue through Saturday. States that she was fine on Saturday and Saturday. Headache returned yesterday, took Nurtec prescription medication Patient reports that she does have a history of migraines. Patient reports nausea, vomiting x5. States that when she looks at her computer for long periods of time and then looks at though ball her vision is a little off. Denies this being the worst headache of her life. Denies any neck pain, fevers. Related Data Home Medications ?Medication ?Instructions ?Recorded ?Confirmed ?Last Taken ?Type bupropion HCl 300 mg 24 hr tablet, 300 mg PO QAM Anxiety 08/08/20 12/04/23 01/17/23 History extended release cholecalciferol (vitamin D3) 1,250 1,250 mcg PO DAILY 02/28/23 01/19/25 Unknown History mcg (50,000 unit) capsule estradiol 0.5 mg tablet 0.5 mg PO DAILY 02/28/23 12/04/23 Unknown History sertraline 50 mg tablet 50 mg PO DAILY 02/28/23 12/04/23 Unknown History alprazolam 1 mg tablet 1 mg PO DAILY PRN Anxiety 06/07/23 01/19/25 Unknown History rimegepant 75 mg disintegrating mg 01/19/25 Unknown History tablet (Nurtec ODT) Allergies Allergy/AdvReac Type Severity Reaction Status Date / Time metoclopramide AdvReac Severe Hallucinati Verified 01/19/25 15:06 ng Review of Systems Review of Systems: All systems reviewed & are unremarkable except as noted in HPI and below Constitutional: Constitutional: Reports as per HPI and Reports headache(s) ENT: Reports system reviewed and no additional complaints, except as documented Musculoskeletal: Musculoskeletal: Reports no additional musculoskeletal complaints Integumentary/Breasts: Skin/Breast: Reports system reviewed and no additional complaints, except as docu Neurologic: Reports as per HPI PMFSH Past Medical History Medical History Gastroparesis Irritable bowel syndrome with diarrhea Duodenal diverticulum Belching Colon cancer screening Epigastric pain Esophageal stricture TIA (transient ischemic attack) Irritable bowel syndrome GERD (gastroesophageal reflux disease) Anxiety HTN (hypertension) Migraines Hiatal hernia Surgical History Surgical History History of Mirtha fundoplication History of fusion of cervical spine Hx of knee surgery Hx of appendectomy Hx of cholecystectomy History of endoscopy H/O: hysterectomy Family History Family History Mother Hypertension Family history of diabetes mellitus in first degree relative Sibling Patient's sister is in good health Patient's brother is in good health Father Hypertension Family history of diabetes mellitus in first degree relative Social History Social History Smoking status: Never smoker Second hand tobacco smoke exposure: No Alcohol intake: never Substance use: never Substance use type: does not use Lack of Transportation: No Lack of Food: Sometimes True Current Housing: I Have Housing Concerned About Future Housing: No Difficulty Paying Gas/Electric Bills: No Difficulty Paying for Meds: No Currently Unemployed: No Education: High School Diploma/GED Difficulty w/ Childcare or Family Care: No Living arrangements: with family Occupation/Education: occupation Gender identity (if verbalized by the patient): Female Sexual Orientation (if Verbalized by the Patient): Straight or Heterosexual Spiritual care concerns: No Agree to blood products: Yes Comments At the time of my signature, I reviewed and agree with the nursing past medical, surgical, social, and family history. There is no relevant family history pertinent to the patient complaint. Exam Const: General: cooperative, healthy appearing, comfortable, no acute distress, well developed, alert and well nourished Nutritional Appearance: well nourished Orientation/consciousness: patient oriented x3 Limitations: no limitations HENMT: Head: normal to inspection Ears: hearing grossly normal bilaterally, external ears normal, TM's normal bilaterally, EAC's normal, mastoids normal and no periauricular adenopathy Mouth: Yes Normal oral and palatal mucosa present, Yes lip normal, Yes tongue normal and Yes moist mucous membranes Throat: posterior oropharynx normal, uvula midline and no uvular edema Eyes: General: appearance normal, both eyes and all related structures Alignment and Position: alignment normal Neck: Neck: normal visual inspection, full ROM, no lymphadenopathy and no meningeal signs Chest: Chest palpation & inspection: normal inspection of the chest Resp: Effort & Inspection: normal respiratory effort and able to speak in complete sentences Cardio: Rate: regular rate Skin: General skin exam: normal color and no rashes or lesions noted Neuro: General: patient oriented x3, gait normal, tone normal, moves all extremities, no meningeal signs and no focal motor deficits Cranial nerves: Yes Equal, round and reactive pupils present, Yes Bilaterally intact EOM present, Yes Nystagmus not present, Yes Normal facial strength present, Yes facial symmetry and Yes Midline tongue present Cognition (Neuro): normal cognition Speech: normal speech Gait exam (Neuro): Normal gait present Extrem: General: normal to inspection, full ROM, capillary refill normal and normal gait Psych: Appearance: grossly normal and well kempt Mental Status: mental status grossly normal Speech and movement: Normal speech and movement present and Clear speech present Affect: normal affect Attitude: cooperative Course Course Level of Care: Express Care Visit Vital Signs Vital signs: Vital Signs Temperature 98.4 F 01/19/25 15:08 Pulse Rate 83 01/19/25 15:08 Respiratory Rate 16 01/19/25 15:08 Blood Pressure 123/76 01/19/25 15:08 Pulse Oximetry 98 01/19/25 15:08 Oxygen Delivery Room Air 01/19/25 15:08 Temperature 98.4 F 01/19/25 15:08 Pulse Rate 83 01/19/25 15:08 Respiratory Rate 16 01/19/25 15:08 Blood Pressure 123/76 01/19/25 15:08 Pulse Oximetry 98 01/19/25 15:08 Oxygen Delivery Room Air 01/19/25 15:08 Reviewed Medical Decision Making MDM Narrative Medical decision making narrative: Patient sitting comfortably in exam room. Nontoxic, vitals stable. Patient in no acute distress Patient presents with a migraine headache, states that she has gotten Toradol in the past which has helped greatly. Patient denies any kidney issues. Patient denies this being the worst headache of her life. Patient appropriate for outpatient treatment with close follow-up. Discussed with patient signs and symptoms proceed to the emergency room which she verbalized understanding Discharge instructions reviewed with patient, as well as provided in writing per nursing staff. The instructions also include specific and strict return/GO TO THE ER as well as f/u information. All questions have been answered, and the patient deny any further questions with discharge and discharge plan. Some parts of this dictation were generated by voice recognition software and may contain typographical and/or grammatical inaccuracies. Differential Diagnosis Differential Diagnosis: Migraine, congestion, URI, acute headache, tension headache Medical Records Medical records reviewed: Yes I reviewed the external patient's medical records. Vital Signs Vital Signs: Vital Signs Temperature 98.4 F 01/19/25 15:08 Pulse Rate 83 01/19/25 15:08 Respiratory Rate 16 01/19/25 15:08 Blood Pressure 123/76 01/19/25 15:08 Pulse Oximetry 98 01/19/25 15:08 Oxygen Delivery Room Air 01/19/25 15:08 Temperature 98.4 F 01/19/25 15:08 Pulse Rate 83 01/19/25 15:08 Respiratory Rate 16 01/19/25 15:08 Blood Pressure 123/76 01/19/25 15:08 Pulse Oximetry 98 01/19/25 15:08 Oxygen Delivery Room Air 01/19/25 15:08 Reviewed Lab Data Lab results reviewed: Yes I reviewed the patient's lab results. Labs: Lab Results 01/19/25 Range/Units 15:17 POC SARS CoV-2 Ag Negative (Negative) Reviewed Critical Care Time Critical Care Time Critical Care Time: No Discharge Plan Discharge Clinical Impression: Headache Qualifiers: Headache type: unspecified Headache chronicity pattern: acute headache Patient Disposition: Home Condition: Stable Instructions: Acute Headache (ED) Additional Instructions: Rest cool dark room. Take Motrin alternating with Tylenol as needed for pain. Follow-up with the doctor as already scheduled For new or worsening symptoms go directly to the emergency room Patient Language: [place] Prescriptions: No Action estradiol 0.5 mg tablet 0.5 mg PO DAILY sertraline 50 mg tablet 50 mg PO DAILY cholecalciferol (vitamin D3) 1,250 mcg (50,000 unit) capsule 1,250 mcg PO DAILY prednisone 20 mg tablet 40 mg PO DAILY 5 Days Qty: 10 0RF triamcinolone acetonide 0.1 % cream 1 applic topical BID 7 Days Qty: 30 0RF Nurtec ODT 75 mg tablet,disintegrating omeprazole 40 mg capsule,delayed release(DR/EC) 40 mg PO BID Qty: 60 3RF dicyclomine 10 mg capsule 10 mg PO QID Qty: 120 1RF erythromycin 250 mg tablet 250 mg PO .AC TID Qty: 90 3RF sucralfate [Carafate] 1 gram tablet 1 g PO ACHS Qty: 120 3RF alprazolam 1 mg tablet 1 mg PO DAILY PRN (Reason: Anxiety) bupropion HCl 300 mg Tablet Extended Release 24 Hr 300 mg PO QAM Follow-up/Referrals: Inder,Bianca Sorensen NP [Primary Care Provider, Unknown] - 1 Week Clinical Impression: Headache Stand Alone Forms: Work/School Release IP Time of Disposition: 15:31
[2025-01-19 15:08] VITALS: BP 123/76; PULSE 83; RESP 16; TEMP 36.9; O2SAT 98
[2025-01-19] MEDS: ONDANSETRON HCL ODT 4 MG TABLET SUBLINGUAL (15:20)
[2025-01-19] MEDS: KETOROLAC (*BKC) 60 MG/2 ML VIAL IM (15:21)
[2025-01-19 15:22] LABS: EDCOVIDSCREEN Negative (Negative)
== END 2025-01-19 15:58 | disposition home or self-care (01) ==
PROVIDERS: Emergency Provider Nurse Practitioner; PCP Nurse Practitioner Family
DX: R51.9 Headache, unspecified (principal); Z86.73 Personal history of transient ischemic attack (TIA), and cerebral infarction without residual deficits; I10 Essential (primary) hypertension; K21.9 Gastro-esophageal reflux disease without esophagitis; F41.9 Anxiety disorder, unspecified; Z20.822 Contact with and (suspected) exposure to COVID-19
CPT/HCPCS: 87426; 96372; 99213; A9270; G0463; J1885

== ENCOUNTER 2025-04-15 11:44 | Emergency (ER) | payer OTHER, SELFPAY ==
[2025-04-15 11:54] VITALS: BP 130/102; PULSE 104; RESP 18; TEMP 37; O2SAT 98
[2025-04-15 12:04] LABS: EDSTREPNEGPOS1 Negative (Negative)
[2025-04-15 12:12] LABS: EDCOVIDSCREEN Negative (Negative); EDINFLUASCREEN Negative (Negative); EDINFLUBSCREEN Negative (Negative)
--- NOTE | 2025-04-15 12:32 | ED_ITS ---
HPI - URI/Sore Throat General Chief Complaint: Upper Respiratory Infection Stated Complaint: sore throat/body aches Time Seen by Provider: 04/15/25 12:20 Source: patient and RN notes reviewed Mode of arrival: ambulatory Limitations: no limitations History of Present Illness HPI Narrative: 55-year-old female presents to the [facility] complaining of sore throat, body aches, cough, congestion, runny nose, chest congestion approximally 3 days. Patient denies any fevers, chills, sweats, nausea vomiting, diarrhea, chest pain, difficulty breathing, shortness of breath, or any other symptoms. Patient has been taking [id number] cold and flu medication allergy relief. Patient reports a history of migraines and anxiety. Related Data Home Medications ?Medication ?Instructions ?Recorded ?Confirmed ?Last Taken ?Type cholecalciferol (vitamin D3) 1,250 1,250 mcg PO DAILY 02/28/23 03/24/25 Unknown History mcg (50,000 unit) capsule alprazolam 1 mg tablet 1 mg PO DAILY PRN Anxiety 03/24/25 Unknown History rimegepant 75 mg disintegrating mg 01/19/25 03/24/25 U nknown History tablet (Nurtec ODT) amitriptyline 10 mg tablet mg 04/15/25 Unknown Histor y megestrol 400 mg/10 mL (40 mg/mL) mg 04/15/25 Unknown History oral suspension Allergies Allergy/AdvReac Type Severity Reaction Status Date / Time metoclopramide AdvReac Severe Hallucinati Verified 03/24/25 13:14 ng Review of Systems Review of Systems: CONSTITUTIONAL: Denies fever, chills, or sweats. Positive for body aches. EYES: Denies visual changes, redness, or discharge. ENT: Positive for rhinorrhea, congestion, sore throat. Negative for otalgia. CARDIOVASCULAR: Denies chest pain, palpitations, dizziness, lightheadedness or edema. RESPIRATORY: Positive for cough. Negative for dyspnea or wheezing. GASTROINTESTINAL: Denies abdominal pain, nausea, vomiting, or diarrhea. GENITOURINARY: Denies dysuria or hematuria. SKIN: Denies rash or itching. MUSCULOSKELETAL: Denies back pain, joint pain, or myalgia. NEUROLOGIC: Denies headache, numbness, or weakness. PSYCHIATRIC: Denies anxiety or depression. All other systems reviewed are negative, except as documented in HPI. [facility] Past Medical History Medical History Gastroparesis Irritable bowel syndrome with diarrhea Duodenal diverticulum Belching Colon cancer screening Epigastric pain Esophageal stricture TIA (transient ischemic attack) Irritable bowel syndrome GERD (gastroesophageal reflux disease) Anxiety HTN (hypertension) Migraines Hiatal hernia Surgical History Surgical History History of Mirtha fundoplication History of fusion of cervical spine Hx of knee surgery Hx of appendectomy Hx of cholecystectomy History of endoscopy H/O: hysterectomy Family History Family History Mother Hypertension Family history of diabetes mellitus in first degree relative Sibling Patient's sister is in good health Patient's brother is in good health Father Hypertension Family history of diabetes mellitus in first degree relative Social History Social History Smoking status: Never smoker Second hand tobacco smoke exposure: No Alcohol intake: never Substance use: never Substance use type: does not use Lack of Transportation: No Lack of Food: Sometimes True Current Housing: I Have Housing Concerned About Future Housing: No Difficulty Paying Gas/Electric Bills: No Difficulty Paying for Meds: No Currently Unemployed: No Education: High School Diploma/GED Difficulty w/ Childcare or Family Care: No Living arrangements: with family Occupation/Education: occupation Gender identity (if verbalized by the patient): Female Sexual Orientation (if Verbalized by the Patient): Straight or Heterosexual Spiritual care concerns: No Agree to blood products: Yes Comments At the time of my signature, I reviewed and agree with the nursing past medical, surgical, social, and family history. There is no relevant family history pertinent to the patient complaint. Exam Narrative: GENERAL: This is a well-nourished, well-developed adult, in no apparent distress. They are non ill-appearing, nontoxic appearing. HEAD: normocephalic, atraumatic. EYES: Sclera clear/white. Vision is grossly intact. Conjunctiva normal bilaterally. Extraocular movements intact. EARS: External ears normal, auditory canals clear and without drainage, TMs without erythema or perforation. Hearing grossly intact. NOSE: External nose normal with no obvious nasal discharge, nasal turbinates erythematous, no rhinorrhea. THROAT: Mucous membranes moist, posterior pharynx erythematous without exudate. Uvula is midline. Postnasal drip present. NECK: Neck supple, non-tender without lymphadenopathy, masses or thyromegaly. CARDIOVASCULAR: Regular rate and rhythm without murmurs, gallops, or rubs. RESPIRATORY: Clear to auscultation. Breath sounds equal bilaterally. No wheezes, rales, or rhonchi. SKIN: warm, Dry, intact with no suspicious lesions or rash, good texture and turgor. NEURO: awake, alert, and oriented to person, place and time. There were no obvious focal neurologic abnormalities. EXTREMITIES: No joint tenderness, effusion, or edema noted. BACK: Nontender without deformity. Course Course Emergency Course: Portions of this record may have been created with voice recognition software Level of Care: Express Care Visit Vital Signs Vital signs: Vital Signs Temperature 98.6 F 04/15/25 11:54 Pulse Rate 104 H 04/15/25 11:54 Respiratory Rate 18 04/15/25 11:54 Blood Pressure 130/102 H 04/15/25 11:54 Pulse Oximetry 98 04/15/25 11:54 Oxygen Delivery Room Air 04/15/25 11:54 Temperature 98.6 F 04/15/25 11:54 Pulse Rate 104 H 04/15/25 11:54 Respiratory Rate 18 04/15/25 11:54 Blood Pressure 130/102 H 04/15/25 11:54 Pulse Oximetry 98 04/15/25 11:54 Oxygen Delivery Room Air 04/15/25 11:54 MDM - URI/Sore Throat MDM Narrative Medical decision making narrative: Rapid COVID, flu, strep were negative. A throat culture is pending. Symptoms likely viral in etiology. The patient a 1 time dose of dexamethasone for sore throat, she reports lot of pain with swelling and reporting and her pain a 6/10. Discussed physical exam findings. Advised supportive measures and signs/symptoms to go to the ER. Pt is appropriate for outpt treatment and f/u. Differential Diagnosis Differential diagnosis: Likely upper respiratory infection, sinusitis, viral infection and pharyngitis Lab Data Attestation: I reviewed the patient's lab results. Labs: Lab Results 04/15/25 04/15/25 Range/Units 12:02 12:11 POC Influenza A Ag Negative (Negative) POC Influenza B Ag Negative (Negative) POC SARS CoV-2 Ag Negative (Negative) POC Grp A Strep Screen Negative (Negative) Discharge Plan Discharge Clinical Impression: Upper respiratory infection Qualifiers: URI type: unspecified viral URI Qualified Code(s): J06.9 - Acute upper respiratory infection, unspecified Patient Disposition: Home Condition: Stable Instructions: Antibiotic Form, Upper Respiratory Infection (ED) Additional Instructions: Your rapid COVID, flu, rapid strep swab was negative today at [facility]. You will be notified in a few days if the culture comes back positive for strep, and appropriate antibiotics will be called in for you at that time. Your symptoms are likely due to a viral illness, which is not treated with antibiotics. Viral symptoms can be present for up to 7-10 days. Take Tylenol or Motrin as needed for fever or pain. Follow instructions on the bottle. Do not take additional Tylenol if you are consuming DayQuil or NyQuil as it already contains Tylenol in it. Rest and stay hydrated. Take dexamethasone as directed. Follow up with your PCP in 5-7 days if symptoms are not improving. Go to the ER immediately if you developed chest pains, difficulty breathing or swallowing, vomiting, uncontrolled fevers, or any serious concerns. Patient Language: Venezuelan Prescriptions: New dexamethasone 6 mg tablet 6 mg PO DAILY 1 Days Qty: 1 0RF No Action megestrol 400 mg/10 mL (40 mg/mL) suspension amitriptyline 10 mg tablet cholecalciferol (vitamin D3) 1,250 mcg (50,000 unit) capsule 1,250 mcg PO DAILY triamcinolone acetonide 0.1 % cream 1 applic topical BID 7 Days Qty: 30 0RF Nurtec ODT 75 mg tablet,disintegrating omeprazole 40 mg capsule,delayed release(DR/EC) 40 mg PO BID Qty: 60 3RF sucralfate [Carafate] 1 gram tablet 1 g PO ACHS Qty: 120 3RF alprazolam 1 mg tablet 1 mg PO DAILY PRN (Reason: Anxiety) estradiol [Estrace] 0.01 % (0.1 mg/gram) cream 1 g vaginal DAILY Qty: 42.5 1RF Rx Instructions: for 14 days and then twice weekly after. Follow-up/Referrals: Inder,Bianca Sorensen, [employer] [Primary Care Provider, Unknown] Time of Disposition: 12:31
== END 2025-04-15 12:35 | disposition home or self-care (01) ==
PROVIDERS: PCP Nurse Practitioner Family
DX: J06.9 Acute upper respiratory infection, unspecified (principal); I10 Essential (primary) hypertension; Z79.899 Other long term (current) drug therapy; Z86.73 Personal history of transient ischemic attack (TIA), and cerebral infarction without residual deficits; Z20.822 Contact with and (suspected) exposure to COVID-19
CPT/HCPCS: 87081; 87426; 87804; 87880; 99213; G0463

== ENCOUNTER 2025-05-11 17:12 | Emergency (ER) | payer OTHER, SELFPAY ==
--- NOTE | 2025-05-11 17:18 | ED.URI ---
HPI - URI/Sore Throat General Chief Complaint: Upper Respiratory Infection Stated Complaint: Sinus Time Seen by Provider: 05/11/25 17:18 Source: patient, RN notes reviewed and old records reviewed Mode of arrival: ambulatory Limitations: no limitations History of Present Illness HPI Narrative: 55-year-old female presents to the [facility] with 7 weeks of sinus congestion reports that been on and off. was seen on April 15, prescribe dexamethasone. Followed up with primary care provider on April 26, was prescribed prednisone. patient reports on and off congestion. States that she has used Flonase symptoms got better, stopped using it and symptoms return. Reports taking an antihistamine, Zyrtec every day Related Data Home Medications ?Medication ?Instructions ?Recorded ?Confirmed ?Last Taken ?Type cholecalciferol (vitamin D3) 1,250 1,250 mcg PO DAILY 02/28/23 03/24/25 Unknown History mcg (50,000 unit) capsule alprazolam 1 mg tablet 1 mg PO DAILY PRN Anxiety 06/07/23 03/24/25 Unknown History rimegepant 75 mg disintegrating mg 01/19/25 03/24/25 Unknown History tablet (Nurtec ODT) amitriptyline 10 mg tablet mg 04/15/25 Unknown History Allergies Allergy/AdvReac Type Severity Reaction Status Date / Time metoclopramide AdvReac Severe Hallucinati Verified 05/11/25 17:19 ng Review of Systems Review of Systems: All systems reviewed & are unremarkable except as noted in HPI and below Constitutional: Constitutional: Reports no additional constitutional complaints ENT: Reports as per HPI Cardiovascular: Cardiovascular: Reports no additional cardiovascular complaints, Denies chest pain and Denies dyspnea Respiratory: Respiratory: Reports no additional respiratory complaints, Denies chest congestion, Denies cough and Denies dyspnea Musculoskeletal: Musculoskeletal: Reports no additional musculoskeletal complaints Integumentary/Breasts: Skin/Breast: Reports system reviewed and no additional complaints, except as docu PMFSH Past Medical History Medical History Gastroparesis Irritable bowel syndrome with diarrhea Duodenal diverticulum Belching Colon cancer screening Epigastric pain Esophageal stricture TIA (transient ischemic attack) Irritable bowel syndrome GERD (gastroesophageal reflux disease) Anxiety HTN (hypertension) Migraines Hiatal hernia Surgical History Surgical History History of Mirtha fundoplication History of fusion of cervical spine Hx of knee surgery Hx of appendectomy Hx of cholecystectomy History of endoscopy H/O: hysterectomy Family History Family History Mother Hypertension Family history of diabetes mellitus in first degree relative Sibling Patient's sister is in good health Patient's brother is in good health Father Hypertension Family history of diabetes mellitus in first degree relative Social History Social History Smoking status: Never smoker Second hand tobacco smoke exposure: No Alcohol intake: never Substance use: never Substance use type: does not use Lack of Transportation: No Lack of Food: Sometimes True Current Housing: I Have Housing Concerned About Future Housing: No Difficulty Paying Gas/Electric Bills: No Difficulty Paying for Meds: No Currently Unemployed: No Education: High School Diploma/GED Difficulty w/ Childcare or Family Care: No Living arrangements: with family Occupation/Education: occupation Gender identity (if verbalized by the patient): Female Sexual Orientation (if Verbalized by the Patient): Straight or Heterosexual Spiritual care concerns: No Agree to blood products: Yes Comments At the time of my signature, I reviewed and agree with the nursing past medical, surgical, social, and family history. There is no relevant family history pertinent to the patient complaint. Exam Const: General: cooperative, healthy appearing, comfortable, no acute distress, well developed, alert and well nourished Nutritional Appearance: well nourished Orientation/consciousness: patient oriented x3 Limitations: no limitations HENMT: Head: normal to inspection Ears: hearing grossly normal bilaterally, external ears normal, TM's normal bilaterally, EAC's normal, mastoids normal and no periauricular adenopathy Face and sinus: normal facial exam, face symmetric and sinus tenderness Mouth: Yes Normal oral and palatal mucosa present, Yes lip normal, Yes tongue normal and Yes moist mucous membranes Throat: posterior oropharynx normal, uvula midline, postnasal drainage and no uvular edema Eyes: General: appearance normal, both eyes and all related structures Alignment and Position: alignment normal Neck: Neck: normal visual inspection, full ROM, no lymphadenopathy and no meningeal signs Chest: Chest palpation & inspection: normal inspection of the chest Resp: Effort & Inspection: normal respiratory effort and able to speak in complete sentences Auscultation: clear to auscultation bilaterally, no crackles, no rales, no rhonchi and no wheezes Cardio: Rate: regular rate Skin: General skin exam: normal color and no rashes or lesions noted Neuro: General: patient oriented x3, gait normal, moves all extremities and no meningeal signs Cognition (Neuro): normal cognition Speech: normal speech Gait exam (Neuro): Normal gait present Extrem: General: normal to inspection, full ROM, capillary refill normal and normal gait Psych: Appearance: grossly normal and well kempt Mental Status: mental status grossly normal Speech and movement: Normal speech and movement present and Clear speech present Affect: normal affect Attitude: cooperative Course Course Level of Care: Express Care Visit Vital Signs Vital signs: Vital Signs Temperature 98.1 F 05/11/25 17:20 Pulse Rate 109 H 05/11/25 17:20 Respiratory Rate 20 05/11/25 17:20 Blood Pressure 145/91 H 05/11/25 17:20 Pulse Oximetry 100 05/11/25 17:20 Oxygen Delivery Room Air 05/11/25 17:20 Temperature 98.1 F 05/11/25 17:20 Pulse Rate 109 H 05/11/25 17:20 Respiratory Rate 20 05/11/25 17:20 Blood Pressure 145/91 H 05/11/25 17:20 Pulse Oximetry 100 05/11/25 17:20 Oxygen Delivery Room Air 05/11/25 17:20 reviewed MDM MDM Narrative Medical decision making narrative: patient sitting in exam room. Patient is nontoxic, vitals stable except blood pressure elevated. Patient presents with on and off symptoms of sinus congestion, URI symptoms for 7 weeks. Has been prescribed prednisone and dexamethasone with minimal relief. Likely viral but due to length of time, patient's age will attempted antibiotic, discussed with patient to continue [id number] products such as Flonase on a daily basis, patient verbalized understanding patient is appropriate for outpatient treatment with close follow-up Discharge instructions reviewed with patient, as well as provided in writing per nursing staff. The instructions also include specific and strict return/GO TO THE ER as well as f/u information. All questions have been answered, and the patient deny any further questions with discharge and discharge plan. Some parts of this dictation were generated by voice recognition software and may contain typographical and/or grammatical inaccuracies. Differential Diagnosis Differential Diagnosis: Differential diagnostic considerations for upper respiratory infection include upper respiratory infection, croup, otitis media, sinusitis, viral infection, bronchitis, influenza, pharyngitis, strep, uvulitis.? Discharge Plan Discharge Clinical Impression: Sinusitis, PND (post-nasal drip) Patient Disposition: Home Condition: Stable Instructions: Antibiotic Form, Sinusitis (ED), Postnasal Drip (DC) Additional Instructions: Return to urgent care or go to the ER for new or worsening symptoms. Continue to take Tylenol or Motrin for pain. Use a humidifier or vaporizer at night. Take Medications as prescribed. Drink plenty of water. 8-10 glasses per day. Use flonase 2 times per day for 5 days then daily Take mucinex 2 times per day and be sure to take with 8oz of water. take antibiotic as prescribed Follow up with Primary provider if not getting better. for new or worsening symptoms please proceed to the nearest emergency room Patient Language: Mauritian Prescriptions: New doxycycline monohydrate 100 mg tablet 100 mg PO BID Qty: 14 0RF No Action amitriptyline 10 mg tablet cholecalciferol (vitamin D3) 1,250 mcg (50,000 unit) capsule 1,250 mcg PO DAILY Nurtec ODT 75 mg tablet,disintegrating omeprazole 40 mg capsule,delayed release(DR/EC) 40 mg PO BID Qty: 60 3RF sucralfate [Carafate] 1 gram tablet 1 g PO ACHS Qty: 120 3RF alprazolam 1 mg tablet 1 mg PO DAILY PRN (Reason: Anxiety) estradiol [Estrace] 0.01 % (0.1 mg/gram) cream 1 g vaginal DAILY Qty: 42.5 1RF Rx Instructions: for 14 days and then twice weekly after. Follow-up/Referrals: Sandra,Bianca Sorensen NP [Primary Care Provider, Unknown] - 2 Weeks Stand Alone Forms: Work/School Release IP Time of Disposition: 17:27
[2025-05-11 17:20] VITALS: BP 145/91; PULSE 109; RESP 20; TEMP 36.7; O2SAT 100
== END 2025-05-11 17:35 | disposition home or self-care (01) ==
PROVIDERS: Emergency Provider Nurse Practitioner; PCP Nurse Practitioner Family
DX: J32.9 Chronic sinusitis, unspecified (principal); R09.82 Postnasal drip; I10 Essential (primary) hypertension; K21.9 Gastro-esophageal reflux disease without esophagitis; K31.84 Gastroparesis; F41.9 Anxiety disorder, unspecified; Z86.73 Personal history of transient ischemic attack (TIA), and cerebral infarction without residual deficits
CPT/HCPCS: 99213; G0463